=== PATIENT | female | born 1945 | race Caucasian/White ===

== ENCOUNTER 2021-07-15 16:48 | Inpatient (IN) | payer MEDICARE, OTHER, SELFPAY ==
[2021-07-15 16:54] VITALS: BP 171/89; PULSE 77; RESP 16; TEMP 36.8; O2SAT 98; BMI 28.1
[2021-07-15 19:15] VITALS: BP 147/75; PULSE 87
[2021-07-15 19:32] VITALS: BP 156/84; PULSE 78; RESP 16; TEMP 36.7; O2SAT 98
[2021-07-15 19:40] VITALS: O2SAT 99
[2021-07-15 20:21] LABS: Mucous, Urine 0 SEEN /hpf (<or=2+); White Blood Cells 0 SEEN /hpf (0-5)
[2021-07-15 20:47] LABS: Color, Urine Yellow (Yellow); Glucose, Dipstick Normal (Normal); Ketone-Dipstick Negative (Negative); Leukocyte Esterase-Dipstick Negative /ul (Negative); Nitrite-Dipstick Negative (Negative); Occult Blood-Urine Negative /ul (Negative); Protein-Dipstick 15 mg/dl (Negative); Urine Bilirubin Dipstick Negative (Negative); Urine Clarity Clear (Clear); Urine Urobilinogen Normal (Normal)
[2021-07-15] MEDS: Atorvastatin Calcium 20 MG Tablet PO (21:02)
[2021-07-15] MEDS: Acetaminophen 500 MG Tablet 1000 MG PO (21:02)
[2021-07-15] MEDS: Cefadroxil 500 MG CAPSULE PO (21:02)
[2021-07-15 21:43] LABS: Red Blood Cells-Urine 0-5 SEEN /hpf (0-5)
[2021-07-15 21:44] LABS: Bacteria RARE /hpf (None Seen); Squamous Epithelial Cells - UA 0-5 SEEN /hpf (5-10)
[2021-07-15 22:00] VITALS: PULSE 82; RESP 16; O2SAT 98
[2021-07-16] MEDS: traMADol 50 MG Tablet PO (04:53)
--- NOTE | 2021-07-16 05:20 | NURSING ---
04:30 VALLADARES removed and fluid intake encouraged to promote urination. Attends on at this time for possible incontinence.
[2021-07-16 05:59] LABS: Hematocrit 26.3 % (37-47); Hemoglobin 8.3 g/dL (12.0-15.0); Mean Corp Hgb Conc 31.6 g/dL (32-36); Mean Corpuscular Hgb 28.3 pg (27.0-32.0); Mean Corpuscular Volume 89.8 fL (81-99); Mean Platelet Vol. 8.9 fl (6.2-12.0); Platelet Count 213 K/mm3 (150-450); RBC Distribution Width CV 13.5 % (11.6-14.6); RBC Distribution Width SD 43.9 fl (35.1-43.9); Red Blood Count 2.93 M/mm3 (4.2-5.4); White Blood Count 4.6 K/mm3 (4.4-11.0)
[2021-07-16] MEDS: Acetaminophen 500 MG Tablet 1000 MG PO ×3 (06:31→21:09)
[2021-07-16 06:48] LABS: Anion Gap 3 (5-15); BUN 16 mg/dL (7-18); BUN/Creat Ratio 22.2 RATIO (10-20); Calcium,Total 8.3 mg/dL (8.5-10.1); Chloride 109 mmol/L (98-107); Creatinine, Serum 0.72 mg/dL (0.55-1.02); EST Glomerular Filtration Rate 84 mL/min (>60); Est Glom Filt Rate - Afr Amer 101 mL/min (>60); Estimated Creatinine Clearance 40.21 ml/min; Glucose 124 mg/dL (74-106); Potassium 3.4 mmol/L (3.5-5.1); Sodium Level 142 mmol/L (136-145)
[2021-07-16 07:30] VITALS: BP 156/61; PULSE 76; RESP 16; TEMP 36.3; O2SAT 96
[2021-07-16] MEDS: Lisinopril 10 MG Tablet 30 MG PO (07:50)
[2021-07-16] MEDS: Cefadroxil 500 MG CAPSULE PO ×2 (07:51→21:09)
--- NOTE | 2021-07-16 12:47 | HP.PCM_ITS ---
HPI - General General Date of Admission: 07/15/21 HPI Narrative REANNA COSTA, is a 76 YO F with a PMH of HLD, HTN, OA, DDD, lumbar stenosis with radicular pain/paresthesias of the legs/urinary incontinence who was found to have a bone lesion of Lumbar 4 that was suspected to be cancerous. CT scans of the chest/abd and pelvis showed no signs of CA per Reanna. She had a bone bx that was negative for malignancy. She recently had another bx by Dr. Hogan and it too is negative. At the time of the bone bx on 07/08/21 she also underwent a laminectomy of L4-5. On 07/09/21 she went back to surgery to drain a hematoma. She was still incontinent of urine post-op and she is having pe rsistent pain in the R buttock and R thigh and lateral hip area. She has numbness of the Left leg in a stocking type distribution from the distal calf through the foot and she has L foot drop. She has an AFO for the Left foot. Post operatively she was seen by PT and acute rehab was recommended. She lives in a single story house with a basement with her spouse. She has 2 steps with a HR to enter her house. She has been walking with a quad cane. Reanna was transferred to the acute inpt rehab unit at [facility] on 07/15/21 for 3 hours of therapy daily to restore function at or near her level prior to the recent surgery. Reanna had severe pain for 2 years and was on various pain meds and muscle relaxers with no significant relief. Back pain was minimal in comparison to the pain in the legs and the numbness and tingling. She went on to develop urinary incontinence as well and had to use a quad cane to walk. Bending over to make the bed would bring her to tears. All the paperwork from [facility] was reviewed. I discussed the results of the second biopsy with Reanna. She has never had any nerve conduction studies. She has never been on Gabapentin or Lyrica for pain. Oxycodone makes her nauseated and she has been trying not to take pain medication due to this. [facility] Medical History (Updated 07/16/21 @ 13:[address] Lexi Ott DO) Hypertension Home Medications atorvastatin 20 mg PO DAILY 07/15/21 [History Last Taken Unknown] cefadroxil 500 mg PO BID 07/15/21 [History Last Taken Unknown] cholecalciferol (vitamin D3) 10 mcg PO DAILY 07/15/21 [History Last Taken Unknown] diclofenac sodium 75 mg PO DAILY 07/15/21 [History Last Taken Unknown] lisinopril 30 mg PO DAILY 07/15/21 [History Last Taken Unknown] tizanidine 4 mg PO TID PRN PRN 07/15/21 [History Last Taken Unknown] Allergy/AdvReac Type Severity Reaction Status Date / Time Penicillins AdvReac Other Verified 07/15/21 17:10 Sulfa (Sulfonamide AdvReac Other Verified 07/15/21 17:10 Antibiotics) tetracycline AdvReac Other Verified 07/15/21 17:10 Family History (Updated 07/16/21 @ 13:[address] Lexi Ott DO) Mother CVA (cerebral vascular accident) Father , at 81YOA....cause unknown No problems noted. Surgical History (Updated 07/16/21 @ 13:[address] Lexi Ott DO) History of carpal tunnel release of both wrists History of lumbar laminectomy for spinal cord decompression History of Mohs micrographic surgery for skin cancer History of nasal surgery History of tubal ligation Social History (Updated 07/16/21 @ 13:[address] Lexi Ott DO) household members: spouse housing: house Smoking Status: Never smoker ROS Constitutional Constitutional: Reports weakness; Denies anorexia, change in weight, chills, fatigue, fever(s) or night sweats Eyes Eyes: Denies blurry vision, change in vision, eye pain or loss of vision ENT HEENT: Denies abnormal hearing, dysphagia, headache(s), hearing loss, nasal congestion or sore throat Cardiovascular Cardiovascular: Denies chest pain, dyspnea on exertion, edema, lightheadedness, orthopnea, palpitations, paroxysmal nocturnal dyspnea or syncope Respiratory/Chest Respiratory/Chest: Denies cough, dyspnea, shortness of breath at rest, shortness of breath with exertion or wheezing Gastrointestinal Gastrointestinal: Reports nausea and other Details: Nausea with Oxycodone. Tolerates Tramadol if taken with crackers. ; Denies abdominal pain, constipation, diarrhea, dyspepsia, hematemesis, hematochezia or vomiting Genitourinary Genitourinary: Reports urinary incontinence; Denies dysuria, hematuria, nocturia, urinary frequency, urinary hesitancy or urinary urgency Musculoskeletal Musculoskeletal: Reports difficulty walking, extremity pain, numbness, radiating pain into limb, tingling and other Details: R buttock in the sciatic notch ; Denies back pain, joint pain, joint swelling or neck pain Integumentary Integumentary: Reports other Details: Surgical wound low back due to recent Lumbar laminectomy at L4-5. ; Denies jaundice, pruritus or rash Neurologic Neurologic: Reports paresthesias LLE and radicular pain; Denies confusion, disequilibrium, dizziness, focal weakness, headache(s), seizures or tremor(s) Psychiatric Psychiatric: Denies anxiety, depression, homicidal ideation or suicidal ideation Endocrine Endocrinology: Denies change in body appearance, polydipsia or polyuria Hematologic/Lymphatic Hematologic/Lymphatic: Denies easy bleeding, easy bruising or lymphadenopathy Allergic/Immunologic Allergic/Immunologic: Denies rhinitis, eczemia or asthma Vital Signs Vital Signs Vital Signs: 07/15/21 16:54 07/15/21 19:15 07/15/21 19:32 Temperature 98.3 F 98.1 F Temperature Source Oral Oral Pulse Rate 77 87 78 Pulse Strength Respiratory Rate 16 16 Respiratory Effort Respiratory Depth Respiratory Pattern Blood Pressure 171/89 H 147/75 H 156/84 H Blood Pressure Mean 116 99 108 Blood Pressure Source Monitor Monitor Monitor Blood Pressure Position Semi-Fowlers Semi-Fowlers Semi-Fowlers Blood Pressure Location Right Arm Right Arm Right Arm Pulse Ox 98 98 Oxygen Delivery Method Room Air Room Air 07/15/21 19:40 07/15/21 22:00 07/16/21 07:30 Temperature 97.4 F L Temperature Source Temporal Pulse Rate 82 76 Pulse Strength Normal (2+) Respiratory Rate 16 16 Respiratory Effort Normal Non-Labored Respiratory Depth Normal Respiratory Pattern Normal Blood Pressure 156/61 H Blood Pressure Mean 92 Blood Pressure Source Monitor Blood Pressure Position Semi-Fowlers Blood Pressure Location Right Arm Pulse Ox 99 98 96 Oxygen Delivery Method Room Air Room Air Room Air 07/16/21 09:05 Temperature Temperature Source Pulse Rate Pulse Strength Normal (2+) Respiratory Rate Respiratory Effort Respiratory Depth Respiratory Pattern Blood Pressure Blood Pressure Mean Blood Pressure Source Blood Pressure Position Blood Pressure Location Pulse Ox Oxygen Delivery Method Weight Weight: 159 lb 6.307 oz Body Mass Index (BMI) 28.1 Physical Exam Const alert, oriented x3 and no apparent distress Constitutional Narrative: Making good eye contact, appropriate. Lying in bed and appears to be in no distress. General Appearance: cooperative, comfortable, well kempt and well developed HEENT moist oral mucous membranes and oropharynx normal Head and Scalp: normocephalic and atraumatic Eyes PERRL, EOMs intact bilaterally, conjunctivae normal and no scleral icterus General Eye: normal appearance of both eyes Neck no lymphadenopathy, supple, no JVD and no carotid bruits Neck Narrative: Brisk carotid upstroke with good pulse volume bilaterally Lymph Lymphatic: no lymphadenopathy noted Resp normal respiratory effort, normal air movement, no use of accessory muscles and clear to auscultation bilaterally Resp Narrative: Not tachypneic and no conversational dyspnea. Effort and Inspection: able to speak in complete sentences Cardio regular rate, regular rhythm, S1 normal heart sound, S2 normal heart sound, no murmurs, no rub and no gallops GI normal to inspection, nondistended, normoactive bowel sounds, soft to palpation, non-tender, no masses and no bruits GI Narrative: No guarding with palpation. no CVA tenderness Bladder / Kidney Exam: bladder normal to palpation Extremity no clubbing, cyanosis or edema, no calf tenderness and no pedal edema Extremity Narrative: Has foot drop on the left and there is an AFO in place Peripheral Pulses: Yes pulses 2+ throughout Skin Skin Narrative: No rashes, no skin breakdown. She has an incision in the lumbar area from recent laminectomy. General Skin Exam: no breakdown Rashes: no rashes Neuro oriented x3 and CN's II-XII intact bilaterally Neuro Narrative: Decreased sensation in the distal LLE from mid calf down in a stocking distribution Motor Exam: strength 5/5 throughout Psych mental status grossly normal, thought process normal, cooperative, affect normal and speech normal Psych Narrative: Appropriate, making good eye contact. Able to stay on topic and focus. No flight of ideas. Does not appear anxious or depressed. Conversant and relating well to staff. Appearance: grossly normal Attitude: calm Activity / Motor Behavior: appropriate eye contact Results Lab / Micro Data Result Diagrams: 07/16/21 05:35 07/16/21 05:35 Labs: Laboratory Results - last 24 hr 07/15/21 19:10: Urine Color Yellow, Urine Clarity Clear, Urine pH 6.0, Ur Specific Clayton 1.020, Urine Protein 15 H, Urine Glucose (UA) Normal, Urine Ketones Negative, Urine Occult Blood Negative, Urine Nitrite Negative, Urine Bilirubin Negative, Urine Urobilinogen Normal, Ur Leukocyte Esterase Negative, Urine RBC 0-5 SEEN, Urine WBC 0 SEEN, Ur Squamous Epith Cells 0-5 SEEN, Urine Bacteria RARE, Urine Mucus 0 SEEN 07/16/21 05:35: WBC 4.6, RBC 2.93 L, Hgb 8.3 L, Hct 26.3 L, MCV 89.8, MCH 28.3, MCHC 31.6 L, RDW Std Deviation 43.9, RDW Coeff of Jurgen 13.5, Plt Count 213, MPV 8.9 07/16/21 05:35: Sodium 142, Potassium 3.4 L, Chloride 109 H, Carbon Dioxide 30.0, Anion Gap 3 L, BUN 16, Creatinine 0.72, Estim Creat Clear Calc 40.21, Est GFR (MDRD) Af Amer 101, Est GFR (MDRD) Non-Af 84, BUN/Creatinine Ratio 22.2 H, Glucose 124 H, Calcium 8.3 L Assessment & Plan Assessment/Plan (1) Physical debility: (2) Bone lesion: (3) Lumbar canal stenosis: (4) History of lumbar laminectomy for spinal cord decompression: (5) Urinary incontinence: (6) Paresthesias: (7) Radicular pain of lower extremity: (8) Left foot drop: (9) Hypokalemia: (10) Elevated fasting glucose: (11) Normochromic normocytic anemia: (12) Degenerative disc disease, lumbar: (13) HLD (hyperlipidemia): (14) Hypertension: PLAN: PLAN PT for gait stability OT for ADL's Analgesics as needed Bowel protocol Fall precautions Assess for Anxiety/Depression GI prophylaxis - not necessary. No epigastric pain and no hx of PUD or reflux. she has some nausea but this is associated with Oxycodone DVT prophylaxis with TEDS and SCD's Follow up with Dr. De La Vega and her PCP following DC from IP Rehab AM lab personally reviewed. Will add a liver panel, Mag and phos. The numbness in the Left leg is in a stocking distribution, not dermatomal? due to sciatic nerve compression? Sx consistent with a polyneuropathy? May need to see a neurologist and have EMG/ENG following discharge from rehab if the sx persist or worsen. Pain medication changed to Tramadol. Schedule the Tylenol. Add Gabapentin low dose. No NSAID's at this time Supplement potassium and recheck in a few days. Unit Exclusion This patient is an acute care inpatient being housed in the excluded unit because of capacity issues related to the disaster or emergency.: Yes Charges/Coding Visit Charges Inpatient E&M: 49018 Init Hosp L2
[2021-07-16] MEDS: Potassium Chloride Oral Tablet 20 MEQ PO (13:51)
[2021-07-16 13:55] LABS: AST(SGOT) 19 U/L (15-37); Alanine Aminotransfer ALT/SGPT 21 U/L (13-56); Albumin, Serum 2.8 g/dL (3.2-5.0); Alkaline Phosphatase 61 U/L (45-117); Bilirubin, Direct 0.07 mg/dL (0.00-0.30); Globulin 2.7 g/dL (2.2-4.2); Phosphorus 3.7 mg/dL (2.5-4.9); Protein, Total 5.5 g/dL (6.4-8.2)
--- NOTE | 2021-07-16 14:26 | PCM.RU.PYE ---
Admission Information Primary Diagnosis:: Debility secondary to recent surgery for lumbar canal stenosis with paresthesias in the left lower extremity, urinary retention and incontinence and radicular pain in the right buttock, right lateral thigh and hip area. Status Changes from Prescreening?: No changes Identified Actual Problem List:: Infection, UTI, Skin Intergrity, Pain, ALteration in Cmfrt, Bladder Incontinence, Bowel, Constipation, Mobility Impaired and Alteration-Leisure Activ. Potential Problem List:: DVT, Bleeding, Infection, UTI, Aspiration, Falls, Skin Integrity and Depression Risk of Complications DVT: FRACISCO Hose and Sequential Compression Device Bleeding: Monitor Lab Values, Nursing to Teach Precautions for anti-coagulation therapy., Wound, if applicable, to be assessed every shift. and Stroke patients assessed for lethargy or change in status. Infection: Clinical Staff to Monitor for S/S of infection: and S/S of infection include fever, redness, warmth, etc. Urinary Tract Infection: Monitor for frequency, burning, discomfort, or incontinence. and Nursing will obtain urine sample for urinalysis and C&S when ordered. Aspiration: Clinical staff will monitor for coughing, drooling, congestion., Speech will evaluate swallowing and dsyphasia. and Nursing will monitor patient swallowing during meals. Falls: Patient will be evaluated for Fall Precautions and Patient will be placed on Fall Precautions as indicated per protocol. Skin Breakdown: Nursing will assess skin daily using assessment tool. and Nursing will place on Skin Breakdown Precautions as indicated. Pain: Clinical staff will assess patient's pain level per protocol., Medications will be given, if needed, and the pain level reassessed. and Other methods: Massage, distraction, decrease stimulus, etc. used PRN. Plan of Care Patient requires physician specializing in physical medicine and rehab oversight to provide close medical supervision of rehab issues including: Pain Management, Sleep Problems, Bowel and Bladder, Medical and co-morbidity Management, DVT prophylaxis, Rehabilitation Leadership and Coordination of treatment team Patient needs Physical Therapy: For a minimum of 1 hour and At least 5 out of 7 days Patient needs Physical Therapy to improve:: Mobility, Strengthening, Transfers, Stretching, ROM, Endurance, Stairs, Gait and Balance Patient needs Occupational Therapy: For a minimum of 1 hour and At least 5 out of 7 days Patient needs Occupational Therapy to improve ADL's incl.: Eating, Grooming, Bathing, Dressing, Toileting, Toilet transfers, Community Reintegration, Higher functioning activities, Household tasks, Adaptive Equipment, Splinting and Other activities as determined Patient requires 24/7 Rehabilitation Nursing for: Pain Issues, Identifying and preventing risk factors, Monitoring and reporting current medical conditions, Assisting with ambulation, transfer, and all ADL's, Teaching patients about disease process and medications, Family teaching, Providing safe environment, Bowel and Bladder Issues, Skin integrity and Medication Management Patient needs Offset Platemaker/ Case Management for: Discharge Planning, Arranging Home Equipment or Services and Family Interventions Patient needs Dietary and Nutrition Services for: Adequate Nutrition, Nutritional Supplements and Nutritional Education Goals Patient will remain: free from falls and or injury at time of discharge. Patient will perform bed mobility at: MOD I level of assist. Patient will complete transfers from bed to chair at: MOD I level of assist. Patient will ambulate: 100 feet, with LRD and - (250ft) Patient will complete upper body dressing at: MOD I level of assist. Patient will complete lower body dressing at: - (With AE) Patient will complete toileting at: MOD I level of assist. Patient will perform bathing at: - (supervision) Patient will complete grooming at: MOD I level of assist. Patient will complete home management skills at: MOD I level of assist. Patient will achieve: - (1 curb step and 2 regular steps to gain entry to her home) Patient will have pain level of: of 3 or less Patient's skin will: remain intact Patient will receive: adequate nutrition. Discharge Planning Pt Prognosis for Sig. Practical Improv. w/in Reasonable Time: Good Estimated Length of stay (days): 10 Anticipated D/C Destination: Home w/ family or friends Was Preadmission Assessment Accurate?: Yes
--- NOTE | 2021-07-16 15:07 | CHAPLAIN ---
Type of Pastoral Visit _x__ Initial Visit ___ Follow-up Visit ___ On-call Visit ___ General Patient Visit ___ Spiritual Assessment ___ Family Conference ___ Bereavement ___ Rapid Response ___ Code Blue ___ Other (describe below) Pastoral Care Referral From _x__ Patient ___ Family ___ Nurse ___ Physician ___ Analog Circuit Designer ___ Bevel Polisher ___ Other (describe below) Sacrament/Intervention _x__ Active listening ___ Anointing ___ Jehovah'S Witness ___ Bereavement ___ Communion _x__ Carole exploration ___ ___ Life review _x__ Prayer ___ Reconciliation ___ Sacrament of Sick _x__ Supportive presence ___ Wedding ___ Other (describe below) Pastoral Comments patient very welcoming of spiritual care support and invites this injector assembler to sit and visit; pt explains her health concern, the process of medical intervention to this point, and the good news of no cancer in the biopsy report; pt credits answers to many prayers and carole in God; pt has family support but admits that spouse is trying to do his best; pt is talkative and welcomes prayer and future visits
--- NOTE | 2021-07-16 15:17 | CASEMGMT ---
Social Work Met with patient to complete initial assessment. Introduced self and role. Completed part of assessment then pt went to therapy. SW to f/u to complete. Cyrstal Poole, SALES TECHNICIAN HOME THEATER LIVESTOCK JUDGING COACH
[2021-07-16] MEDS: Gabapentin 100 MG Capsule PO (16:36)
[2021-07-16 19:15] VITALS: BP 150/71; PULSE 70; RESP 16; TEMP 36.4; O2SAT 99
[2021-07-16] MEDS: Gabapentin 100 MG Capsule 200 MG PO (21:09)
[2021-07-16] MEDS: Atorvastatin Calcium 20 MG Tablet PO (21:09)
--- NOTE | 2021-07-16 21:10 | RAD_ITS ---
STUDY: X-RAY - ABDOMEN/PELVIS REASON FOR EXAM: Female, 76 years old. constipation TECHNIQUE: Single AP view of the abdomen / pelvis. COMPARISON: None. FINDINGS: Normal visualized lung bases. Evaluation for free air is limited on supine radiographs. Midline surgical staple line. Moderate increased stool predominantly in the proximal colon and rectosigmoid colon. Nonobstructive bowel gas pattern. No acute osseous abnormality. RAD/Abdomen Single View (Portable) IMPRESSION: Moderate increased stool, correlate for constipation. Electronically Signed: Sohan Yu MD at 22:02 EDT ,
--- NOTE | 2021-07-16 21:12 | NURSING ---
Straight cath per orders for Q6hr if no void. PVR =63
--- NOTE | 2021-07-16 21:13 | NURSING ---
straight cathed per orders from Dr Neal for Q6H straight cath if no void. PVR =635mL, straight cathed 600mL and BS=30mL remains. KUB ordered per order and imaging is present in room at this time.
[2021-07-16 22:00] VITALS: PULSE 69; RESP 16; O2SAT 98
[2021-07-17] MEDS: Acetaminophen 500 MG Tablet 1000 MG PO ×3 (05:47→20:42)
[2021-07-17 08:00] VITALS: BP 138/69; PULSE 75; RESP 16; TEMP 36.2; O2SAT 96
[2021-07-17] MEDS: Cefadroxil 500 MG CAPSULE PO ×2 (08:16→20:44)
[2021-07-17] MEDS: Gabapentin 100 MG Capsule PO ×2 (08:16→17:09)
[2021-07-17] MEDS: Potassium Chloride Oral Tablet 20 MEQ PO (08:16)
[2021-07-17] MEDS: Lisinopril 10 MG Tablet 30 MG PO (08:16)
[2021-07-17] MEDS: Senna/Docusate Sodium 1 Tablet 2 TABLET PO ×2 (08:18→20:42)
--- NOTE | 2021-07-17 11:29 | PCM.PN.BLA ---
Progress Note Afebrile VSS - Systolic is mildly elevated. Diastolic is more often than not WNL......increase may be due to pain. Maintaining appropriate oxygen saturation on RA Oral intake is adequate Discussed with nursing - Will get a Laxative today for constipation. Has been retaining urine and has been straight cath'd. A KUB was obtained last night and there is a large amount of stool in the R colon and in the rectosigmoid area. NS bowel gas pattern. Reviewed the PT/OT notes Medication list reviewed. Has only taken 1 dose of Tramadol since admission and no Zanaflex. Liver panel was unremarkable yesterday. Tells me that the Gabapentin helped a lot with leg pain. She slept better last night than she has in quite some time. Denies CP, SOB, N/V/abd pain, lightheadedness, ROSE and cough. She is having some spasms in the R hamstring. Numbness in the distal LLE persists. No calf pain. Physical Exam Const alert, oriented x3 and no apparent distress Constitutional Narrative: Lying in bed waiting for lunch. General Appearance: cooperative, comfortable and well kempt Resp normal respiratory effort, normal air movement and clear to auscultation bilaterally Effort and Inspection: able to speak in complete sentences Cardio regular rate, regular rhythm and no gallops GI normal to inspection, nondistended, normoactive bowel sounds, soft to palpation and non-tender GI Narrative: Bladder is not distended. No guarding with palpation Extremity no calf tenderness and no pedal edema Extremity Narrative: The numbness in the LLE is lateral calf and dorsum of the foot. The medial leg and arch are spared. Skin General Skin Exam: no breakdown Rashes: no rashes Assessment & Plan Assessment/Plan (1) Physical debility: (2) Lumbar canal stenosis: QUALIFIERS: Neurogenic claudication status: with neurogenic claudication Qualified Code(s): M48.062 - Spinal stenosis, lumbar region with neurogenic claudication (3) History of lumbar laminectomy for spinal cord decompression: (4) Normochromic normocytic anemia: (5) Urinary incontinence: QUALIFIERS: Urinary Incontinence type: overflow incontinence Qualified Code(s): N39.490 - Overflow incontinence (6) Urine retention: (7) Constipation: QUALIFIERS: Constipation type: unspecified constipation type Qualified Code(s): K59.00 - Constipation, unspecified (8) Radicular pain of lower extremity: (9) Paresthesias: (10) Left foot drop: (11) Hypertension: QUALIFIERS: Hypertension type: primary hypertension Qualified Code(s): I10 - Essential (primary) hypertension PLAN: 1. Continue the Gabapentin at the current dose......if in a couple days she is still having significant pain will increase the dose. 2. Continue PT/OT. She is very motivated and is working hard to get home. 3. Laxative today. Suspect the urine retention may be due to constipation with large stool burden in the rectosigmoid colon. 4. I suspect the paresthesias in the distal LLE are due to Peroneal nerve compression - possibly due to positioning during surgery. 5. Has not had a BMD test in many years. she takes a vitamin D supplement daily. I recommend she ask her PCP for a BMD test after DC. Visit Charges Inpatient E&M: 11211 Subs Hosp L2
[2021-07-17] MEDS: Bisacodyl 5 MG Tablet 10 MG PO (14:44)
[2021-07-17 19:30] VITALS: BP 142/62; PULSE 90; RESP 16; TEMP 36.4; O2SAT 96
[2021-07-17] MEDS: Gabapentin 100 MG Capsule 200 MG PO (20:43)
[2021-07-17] MEDS: Atorvastatin Calcium 20 MG Tablet PO (20:44)
[2021-07-17 21:31] VITALS: PULSE 69; RESP 16; O2SAT 98
[2021-07-18] MEDS: Acetaminophen 500 MG Tablet 1000 MG PO ×3 (06:04→20:54)
[2021-07-18] MEDS: Potassium Chloride Oral Tablet 20 MEQ PO (07:35)
[2021-07-18] MEDS: Cefadroxil 500 MG CAPSULE PO ×2 (07:35→20:55)
[2021-07-18] MEDS: Lisinopril 10 MG Tablet 30 MG PO (07:35)
[2021-07-18] MEDS: Senna/Docusate Sodium 1 Tablet 2 TABLET PO (07:36)
[2021-07-18] MEDS: Gabapentin 100 MG Capsule PO ×2 (07:38→17:13)
[2021-07-18 08:00] VITALS: BP 139/68; PULSE 93; RESP 18; TEMP 36; O2SAT 93
[2021-07-18] MEDS: Bisacodyl 10 MG Suppository RC (14:03)
[2021-07-18 19:31] VITALS: BP 155/71; PULSE 83; RESP 16; TEMP 37; O2SAT 97
[2021-07-18] MEDS: Atorvastatin Calcium 20 MG Tablet PO (20:55)
[2021-07-18] MEDS: Gabapentin 100 MG Capsule 200 MG PO (20:56)
--- NOTE | 2021-07-18 21:00 | NURSING ---
STRAIGHT CATHED FOR 450 ML CLEAR YELLOW URINE. PT TOLERATES PROCEDURE WELL.
--- NOTE | 2021-07-19 02:45 | NURSING ---
STRAIGHT CATHED PER STERILE PROCEDURE FOR 450 ML OF CLEAR YELLOW URINE. PT TOLERATES PROCEDURE WELL.
[2021-07-19] MEDS: traMADol 50 MG Tablet PO (06:38)
[2021-07-19] MEDS: Acetaminophen 500 MG Tablet 1000 MG PO ×3 (06:39→21:30)
[2021-07-19 08:00] VITALS: BP 135/58; PULSE 86; RESP 16; TEMP 36.8; O2SAT 95
[2021-07-19] MEDS: Gabapentin 100 MG Capsule PO (08:15)
[2021-07-19] MEDS: Cefadroxil 500 MG CAPSULE PO ×2 (08:15→21:31)
[2021-07-19] MEDS: Lisinopril 10 MG Tablet 30 MG PO (08:16)
[2021-07-19] MEDS: Senna/Docusate Sodium 1 Tablet 2 TABLET PO ×2 (08:16→21:31)
--- NOTE | 2021-07-19 16:07 | PCM.PROGNOTE ---
Subjective Subjective Afebrile VSS-systolic blood pressure is still occasionally mildly elevated but overall has come down since admission. Maintaining appropriate oxygen saturation on RA Oral intake is good Discussed with nursing - no problems that need addressed Reviewed the PT/OT notes Medication list reviewed. Still having pain in the R buttock and the R lateral hip area and lateral thigh. The Gabapentin helps. She is sleeping well at night. Having regular BM's. Still unable to urinate and is being straight cath'd. Had a little coughing last night after taking a handful of pills but, she drank a little water and then went back to sleep. She denies CP, SOB, palpitations, lightheadedness, dysuria, suprapubic pain, ROSE, ST, loss of taste/smell. Objective Data Objective Data Vital Signs: Vital Signs Temp Pulse Resp BP Pulse Ox 98.3 F 86 16 135/58 H 95 07/19/21 08:00 07/19/21 08:00 07/19/21 08:00 07/19/21 08:00 07/19/21 08:00 Oxygen Delivery Method Room Air Weight: 159 lb 6.307 oz Body Mass Index (BMI) 28.1 Intake & Output: Intake and Output for Last 24 Hours 07/17/21 07/18/21 07/19/21 23:59 23:59 23:59 Intake Total 1920 / 1920 1959 / 1959 1170 / 1170 Output Total 2105 / 2105 1350 / 1350 1250 / 1250 Balance -185 / -185 610 / 610 -80 / -80 Lab / Micro Data Result Diagrams: 07/16/21 05:35 07/16/21 05:35 Physical Exam Const alert, oriented x3 and no apparent distress General Appearance: cooperative and comfortable HEENT moist oral mucous membranes Resp normal respiratory effort, no use of accessory muscles and clear to auscultation bilaterally Resp Narrative: Not tachypneic and no conversational dyspnea. Cardio regular rate, regular rhythm, S1 normal heart sound, S2 normal heart sound, no murmurs, no rub and no gallops GI normal to inspection, nondistended, normoactive bowel sounds and non-tender GI Narrative: No guarding with palpation. Extremity Extremity Narrative: Negative Shlomo's and Jie's signs Skin Skin Narrative: No rashes, no skin breakdown. Neuro oriented x3 and CN's II-XII intact bilaterally Neuro Narrative: She has some weak dorsiflexion of the Left foot. Wears an AFO on the LLE for foot drop. Psych affect normal Psych Narrative: Appropriate, making good eye contact. Able to stay on topic and focus. No flight of ideas. Does not appear anxious or depressed. Conversant and relating well to staff. sleeping well. Assessment & Plan Assessment/Plan (1) Physical debility: (2) History of lumbar laminectomy for spinal cord decompression: (3) Urine retention: (4) Normochromic normocytic anemia: (5) Radicular pain of lower extremity: (6) Left foot drop: (7) Hypertension: QUALIFIERS: Hypertension type: primary hypertension Qualified Code(s): I10 - Essential (primary) hypertension PLAN: 1. Continue PT/OT - she is making good progress and is very motivated to do well so she can go home. 2. Increase the Gabapentin to 200 mg TID. 3. Systolic BP is mildly elevated but, better than at admission. Will continue to monitor.....no need to add additional medication at this time. Charges/Coding Visit Charges Inpatient E&M: 88833 Subs Hosp L2
[2021-07-19] MEDS: Gabapentin 100 MG Capsule 200 MG PO ×2 (17:21→21:31)
[2021-07-19 19:24] VITALS: BP 158/75; PULSE 87; RESP 17; TEMP 37; O2SAT 95
[2021-07-19] MEDS: Atorvastatin Calcium 20 MG Tablet PO (21:31)
--- NOTE | 2021-07-20 01:30 | NURSING ---
PT STRAIGHT CATHED PER STERILE TECHNIQUE AND 725 ML CLEAR LIGHT YELLOW URINE DRAINED. PT TOLERATES PROCEDURE WELL.
[2021-07-20] MEDS: traMADol 50 MG Tablet PO ×2 (01:53→19:38)
[2021-07-20] MEDS: Acetaminophen 500 MG Tablet 1000 MG PO ×3 (06:26→20:52)
[2021-07-20 07:45] VITALS: BP 150/75; PULSE 73; RESP 16; TEMP 36.7; O2SAT 93
[2021-07-20] MEDS: Lisinopril 10 MG Tablet 30 MG PO (07:46)
[2021-07-20] MEDS: Gabapentin 100 MG Capsule 200 MG PO ×3 (07:46→20:53)
[2021-07-20] MEDS: Senna/Docusate Sodium 1 Tablet 2 TABLET PO ×2 (07:46→20:54)
[2021-07-20] MEDS: Cefadroxil 500 MG CAPSULE PO ×2 (07:48→20:55)
[2021-07-20 19:43] VITALS: BP 144/71; PULSE 73; RESP 14; TEMP 36.9; O2SAT 95
[2021-07-20] MEDS: Atorvastatin Calcium 20 MG Tablet PO (20:57)
[2021-07-21] MEDS: Acetaminophen 500 MG Tablet 1000 MG PO ×3 (05:11→21:55)
[2021-07-21 05:57] LABS: Hematocrit 27.6 % (37-47); Hemoglobin 8.8 g/dL (12.0-15.0)
[2021-07-21 06:27] LABS: Anion Gap 6 (5-15); BUN 14 mg/dL (7-18); BUN/Creat Ratio 21.6 RATIO (10-20); Calcium,Total 8.6 mg/dL (8.5-10.1); Chloride 107 mmol/L (98-107); Creatinine, Serum 0.65 mg/dL (0.55-1.02); EST Glomerular Filtration Rate 95 mL/min (>60); Est Glom Filt Rate - Afr Amer 115 mL/min (>60); Estimated Creatinine Clearance 40.21 ml/min; Glucose 94 mg/dL (74-106); Potassium 4.1 mmol/L (3.5-5.1); Sodium Level 140 mmol/L (136-145)
[2021-07-21] MEDS: traMADol 50 MG Tablet PO ×2 (07:03→21:54)
[2021-07-21] MEDS: Cefadroxil 500 MG CAPSULE PO ×2 (07:40→21:49)
[2021-07-21] MEDS: Senna/Docusate Sodium 1 Tablet 2 TABLET PO (07:40)
[2021-07-21] MEDS: Gabapentin 100 MG Capsule 200 MG PO ×3 (07:41→21:33)
[2021-07-21] MEDS: Lisinopril 10 MG Tablet 30 MG PO (07:41)
[2021-07-21 08:00] VITALS: BP 131/74; PULSE 72; RESP 14; TEMP 37; O2SAT 95
--- NOTE | 2021-07-21 11:20 | PN_ITS ---
Progress Note Day #7 of Cefadroxil Reanna was seen on TEAM rounds today. Her Tito was present in the room. Afebrile VSS - systolic BP is still over goal frequently. Diastolic is good. HR is WNL Maintaining appropriate oxygen saturation on RA Oral intake is good Discussed with nursing - no problems that need addressed. Reviewed the PT/OT notes Medication list reviewed. All lab was personally reviewed. Hemoglobin is 8.8 today, up from 8.3 on 07/16/2021. Potassium is normal at 4.1 following supplementation. Creatinine is stable at 0.65. Reanna tells me that the pain in the R hip/lateral thigh and the R anterior thigh is gone. She still has some pain in the R buttock but, it comes and goes now. She is sleeping well. She denies CP, SOB, calf pain, dysuria, urinary frequency, N/V/Abd pain, flank pain, Constipation. Still not able to urinate and she is getting catheterized every 6H. Physical Exam Const alert, oriented x3 and no apparent distress General Appearance: cooperative, comfortable and well kempt HEENT HEENT Narrative: MM are a little dry Resp normal respiratory effort, normal air movement and clear to auscultation bilaterally Effort and Inspection: able to speak in complete sentences Cardio regular rate, regular rhythm and no gallops GI normal to inspection, nondistended, normoactive bowel sounds, soft to palpation and non-tender GI Narrative: Bladder is not distended. REctal: she has ext hemorrhoids and they are not thrombosed. Stool is soft and brown. No impaction, fair rectal tone. Extremity normal capillary refill, no calf tenderness and no pedal edema Skin Skin Narrative: The incision is intact. [place] are in place. No erythema or increased warmth to touch. Small amount of dry serous drainage at the caudal end of the incision. No DC could be expressed today. General Skin Exam: no breakdown Rashes: no rashes Assessment & Plan Assessment/Plan (1) Physical debility: (2) Lumbar canal stenosis: QUALIFIERS: Neurogenic claudication status: with neurogenic claudication Qualified Code(s): M48.062 - Spinal stenosis, lumbar region with neurogenic claudication (3) History of lumbar laminectomy for spinal cord decompression: (4) Normochromic normocytic anemia: (5) Left foot drop: (6) Urine retention: (7) Radicular pain of lower extremity: (8) Paresthesias: (9) Hypertension: QUALIFIERS: Hypertension type: primary hypertension Qualified Code(s): I10 - Essential (primary) hypertension PLAN: 1. Continue PT/OT. SCD's/TEDS for DVT prophylaxis 2. Consult Dr. Lu if the inability to even initiate urination continues past Wednesday.........may need to learn how to straight cath prior to going home if the problem persists 3. Continue the current dose of Gabapentin. 4. Increase Lisinopril to 40 mg daily and continue to monitor BP Visit Charges Inpatient E&M: 98827 Subs Hosp L2
--- NOTE | 2021-07-21 12:40 | CASEMGMT ---
Social Work Team meeting held with patient and patient spouse in room. Patient approved 15 Medicare days with anticipated discharge on or before 07/30/2021. Patient plans to discharge to home with spouse. Patient to continue with further care and treatment on the Rehab Unit. Social Work to continue to follow. Dimitrios BEATTY, MAGDA
[2021-07-21] MEDS: Lisinopril 10 MG Tablet PO (13:51)
--- NOTE | 2021-07-21 18:55 | NURSING ---
Earlier today patient was successful in straight catherizing herself but she was unsuccessful this evening. Staff will continue to work with her on this and also patient asked her to bring her in a mirror and staff can see if she can sit, have the mirror present, and visualize to have success instead of standing.
[2021-07-21 19:48] VITALS: BP 145/81; PULSE 74; RESP 16; TEMP 36.4; O2SAT 96
[2021-07-21] MEDS: Atorvastatin Calcium 20 MG Tablet PO (21:50)
[2021-07-21 22:00] VITALS: PULSE 82; RESP 16; O2SAT 98
[2021-07-22] MEDS: Acetaminophen 500 MG Tablet 1000 MG PO ×3 (05:55→21:11)
[2021-07-22] MEDS: Gabapentin 100 MG Capsule 200 MG PO ×3 (07:44→21:12)
[2021-07-22] MEDS: Cefadroxil 500 MG CAPSULE PO ×2 (07:45→21:12)
[2021-07-22] MEDS: Senna/Docusate Sodium 1 Tablet 2 TABLET PO ×2 (07:45→21:11)
[2021-07-22] MEDS: Lisinopril 40 MG Tablet PO (07:45)
[2021-07-22 08:30] VITALS: BP 122/74; PULSE 70; RESP 17; TEMP 36.2; O2SAT 97
--- NOTE | 2021-07-22 18:57 | NURSING ---
Unsuccessful in straight catherizing herself in a seated position, mirror present and propped. Will continue to attempt procedure.
[2021-07-22] MEDS: traMADol 50 MG Tablet PO (21:12)
[2021-07-22] MEDS: Atorvastatin Calcium 20 MG Tablet PO (21:12)
[2021-07-22 21:43] VITALS: BP 145/71; PULSE 90; RESP 17; TEMP 36.4; O2SAT 96
[2021-07-22 22:00] VITALS: PULSE 88; RESP 16; O2SAT 96
[2021-07-23] MEDS: Acetaminophen 500 MG Tablet 1000 MG PO ×3 (06:32→19:59)
[2021-07-23 08:09] VITALS: BP 153/58; PULSE 78; RESP 16; TEMP 36.1; O2SAT 98
[2021-07-23] MEDS: Lisinopril 40 MG Tablet PO (08:27)
[2021-07-23] MEDS: Gabapentin 100 MG Capsule 200 MG PO ×3 (08:27→20:06)
[2021-07-23] MEDS: Cefadroxil 500 MG CAPSULE PO ×2 (08:27→20:06)
[2021-07-23] MEDS: traMADol 50 MG Tablet PO ×2 (08:27→20:07)
[2021-07-23] MEDS: Senna/Docusate Sodium 1 Tablet 2 TABLET PO ×2 (08:28→19:59)
--- NOTE | 2021-07-23 15:29 | CHAPLAIN ---
Type of Pastoral Visit ___ Initial Visit _x__ Follow-up Visit ___ On-call Visit ___ General Patient Visit ___ Spiritual Assessment ___ Family Conference ___ Bereavement ___ Rapid Response ___ Code Blue ___ Other (describe below) Pastoral Care Referral From _x__ Patient ___ Family ___ Nurse ___ Physician ___ Knock Up Assembler ___ Aviation Engineer ___ Other (describe below) Sacrament/Intervention _x__ Active listening ___ Anointing ___ Scientology ___ Bereavement ___ Communion ___ Carole exploration ___ ___ Life review _x__ Prayer ___ Reconciliation ___ Sacrament of Sick ___ Supportive presence ___ Wedding ___ Other (describe below) Pastoral Comments brief stop in to check up on patient; pt is sitting up in bed and states she is doing fine; pt says there is some progress; pt shows pictures of a special little grandchild that was born at 1 lb+ and is doing well; pt expresses gratitude for miracle and blessings
--- NOTE | 2021-07-23 18:56 | NURSING ---
St Cath this afternoon was done late d/t lunch arriving late and pt being with therapy. Pt requested to wait until later this evening to do st cath
[2021-07-23] MEDS: Atorvastatin Calcium 20 MG Tablet PO (20:00)
[2021-07-23 20:09] VITALS: BP 123/72; PULSE 77; RESP 16; TEMP 36.8; O2SAT 95
[2021-07-23 20:30] VITALS: RESP 16
[2021-07-24] MEDS: Acetaminophen 500 MG Tablet 1000 MG PO ×3 (05:10→22:01)
[2021-07-24 08:26] VITALS: BP 148/79; PULSE 110; RESP 16; TEMP 36.6; O2SAT 95
[2021-07-24] MEDS: Cefadroxil 500 MG CAPSULE PO (09:25)
[2021-07-24] MEDS: Lisinopril 40 MG Tablet PO (09:25)
[2021-07-24] MEDS: Gabapentin 100 MG Capsule 200 MG PO ×3 (09:25→22:04)
[2021-07-24] MEDS: traMADol 50 MG Tablet PO (09:25)
[2021-07-24] MEDS: Senna/Docusate Sodium 1 Tablet 2 TABLET PO (09:26)
--- NOTE | 2021-07-24 14:08 | CASEMGMT ---
Social Work Completed living will and HCPOA. Pt named as primary. Original and copy provided to pt. Copies placed on chart. Crystal Poole, MANIFOLD OPERATOR LOADER UNLOADER
--- NOTE | 2021-07-24 16:47 | PCM.PROGNOTE ---
Subjective Subjective Afebrile VSS - systolic BP is still mostly above goal. Diastolic is within goal. Maintaining appropriate oxygen saturation on RA Oral intake is good Weight is stable Having regular bowel movements and her last bowel movement was today. Discussed with nursing - no problems that need addressed. She is doing straight cath herself with some cuing on technique from the nurses. She fel like her Attends were damp this AM and thinks she may have passed a little urine on her own. Reviewed the PT/OT notes Medication list reviewed. She is taking the Tramadol 1-2 times a day. Tells me that her pain is well controlled. Reanna denies chest pain, shortness of breath, palpitations, lightheadedness, cephalgia, nausea/vomiting/abdominal pain, dysuria, calf pain. She is sleeping and eating well. She really has no complaints today. Objective Data Objective Data Vital Signs: Vital Signs Temp Pulse Resp BP Pulse Ox 97.9 F 110 H 16 148/79 H 95 07/24/21 08:26 07/24/21 08:26 07/24/21 08:26 07/24/21 08:26 07/24/21 08:26 Oxygen Delivery Method Room Air Weight: 159 lb 2.78 oz Body Mass Index (BMI) 28.1 Intake & Output: Intake and Output for Last 24 Hours 07/22/21 07/23/21 07/24/21 23:59 23:59 23:59 Intake Total 1994 1710 / 1710 1220 / 1220 Output Total 1994 1250 / 2250 2200 / 2200 Balance 0 / 120 460 / -540 -980 / -980 Lab / Micro Data Result Diagrams: 07/21/21 05:09 07/21/21 05:09 Physical Exam Const alert, oriented x3, no apparent distress and well nourished Constitutional Narrative: pleasant General Appearance: cooperative HEENT moist oral mucous membranes Resp normal respiratory effort, normal air movement and clear to auscultation bilaterally Cardio regular rate, regular rhythm and no gallops GI normal to inspection, nondistended, normoactive bowel sounds, soft to palpation and non-tender Extremity normal capillary refill and no calf tenderness Skin General Skin Exam: no breakdown Rashes: no rashes Wound Narrative: Incision is healing well and there is no erythema, purulent DC or significant increase in warmth to touch. Assessment & Plan Assessment/Plan (1) Physical debility: (2) Lumbar canal stenosis: QUALIFIERS: Neurogenic claudication status: with neurogenic claudication Qualified Code(s): M48.062 - Spinal stenosis, lumbar region with neurogenic claudication (3) Radicular pain of lower extremity: (4) History of lumbar laminectomy for spinal cord decompression: (5) Urine retention: (6) Left foot drop: PLAN: Foot drop was new following the surgery. (7) Normochromic normocytic anemia: (8) Hypertension: QUALIFIERS: Hypertension type: primary hypertension Qualified Code(s): I10 - Essential (primary) hypertension PLAN: No significant change in the systolic BP with increase in the Lisinopril dose. PLAN: Plan 1. Continue teaching on how to self cath. 2. Continue PT/OT 3. Decrease the Lisinopril back to 30 mg and Add Cardizem 4. Plan on DC home on the . 5. If she is still retaining urine at DC will have her follow up with Dr. Lu post DC. 6. Recheck an HH and a BMP on Wednesday Charges/Coding Visit Charges Inpatient E&M: 81345 Subs Hosp L2
[2021-07-24 21:57] VITALS: BP 126/47; PULSE 75; RESP 16; TEMP 36.6; O2SAT 97
[2021-07-24] MEDS: Atorvastatin Calcium 20 MG Tablet PO (22:01)
[2021-07-24] MEDS: dilTIAZem CD 120 MG Capsule PO (22:06)
[2021-07-25] MEDS: Acetaminophen 500 MG Tablet 1000 MG PO ×3 (05:40→22:11)
--- NOTE | 2021-07-25 07:29 | NURSING ---
PT WAS C/O HER ABD HURTING, WAS INC THIS AM OF A LARGE AMT OF URINE, WAS BLADDER SCANNED FOR >999ML, PT STRAIGHT CATHED HERSELF, 1200ML OUT, PT STATED SHE WAS TOLD TO INCREASE HER FLUID INTAKE D/T HER BP RUNNING LOWER YESTERDAY.
[2021-07-25 07:30] VITALS: BP 146/65; PULSE 79; RESP 16; TEMP 36.2; O2SAT 92
[2021-07-25] MEDS: Gabapentin 100 MG Capsule 200 MG PO ×3 (08:36→22:11)
[2021-07-25] MEDS: Lisinopril 10 MG Tablet 30 MG PO (08:36)
--- NOTE | 2021-07-25 11:59 | PCM.PN.BLA ---
Progress Note Afebrile VSS Maintaining appropriate oxygen saturation on RA Oral intake is good Her Attends was wet again this AM but she is not feeling the urge to go. She is able to do the straight cath herself now. Discussed with nursing - no problems that need addressed Reviewed the PT/OT notes Medication list reviewed. Diltiazem 120 mg was added to the drug regimen yesterday due to BP frequently above goal. Reanna tells me that she did not sleep well last night due to pain in the R upper posterior thigh. She only had 1 Tramadol yesterday and that was in the AM. She did get the Gabapentin as regularly scheduled. She denies chills, CP, SOB, calf pain, dysuria, pelvic pain, flank pain, N/V/Abd pain. She is happy with her progress. Physical Exam Const alert, oriented x3 and no apparent distress General Appearance: cooperative and well kempt Resp Resp Narrative: CTA, good inspiratory effort and excellent air exchange. Cardio Cardio Narrative: RRR with no MM and no ectopy. GI GI Narrative: Soft, NT, ND, normal BS's no guarding with palpation. No bladder distension. Back/Spine Back/Spine Narrative: The lumbar incision is intact with no dehiscence. There is no purulent DC. There is a rim of erythema immediately around the incision but no significant increase in warmth to touch. I suspect the redness is irritation from sliding/friction when she is moving around in the bed. Extremity Extremity Narrative: No calf pain. No ankle edema. Skin Skin Narrative: No rashes and no skin breakdown. Psych Psych Narrative: Normal affect, cooperative, not agitated, good energy. Assessment & Plan Assessment/Plan (1) Lumbar canal stenosis: QUALIFIERS: Neurogenic claudication status: with neurogenic claudication Qualified Code(s): M48.062 - Spinal stenosis, lumbar region with neurogenic claudication (2) History of lumbar laminectomy for spinal cord decompression: (3) Left foot drop: (4) Radicular pain of lower extremity: (5) Urine retention: (6) Normochromic normocytic anemia: PLAN: Plan 1. If she is having trouble sleeping again tonight she is going to ask for a Tramadol. I think she is just doing more in PT now and she is more tired and sore after therapy. If this is not effective will increase the Gabapentin at HS. 2. Lab ordered for Wednesday. 3. Continue PT/OT 4. Plan DC next Wednesday to home with her . She has a follow up with the surgeon to remove the carmencita next week. 5. Continue to monitor the incision and if the erythema increases or she has a fever or chills will start and antibiotic. Visit Charges Inpatient E&M: 30473 Subs Hosp L2
[2021-07-25] MEDS: traMADol 50 MG Tablet PO ×2 (12:00→22:11)
--- NOTE | 2021-07-25 13:58 | NURSING ---
patient straight cath self at this time. performed procedure without difficulty and with minimal cueing.
[2021-07-25 18:58] VITALS: BP 122/62; PULSE 75; RESP 14; TEMP 36.6; O2SAT 95
[2021-07-25] MEDS: Atorvastatin Calcium 20 MG Tablet PO (22:12)
[2021-07-25] MEDS: dilTIAZem CD 120 MG Capsule PO (22:13)
[2021-07-26] MEDS: Acetaminophen 500 MG Tablet 1000 MG PO ×3 (05:54→21:13)
[2021-07-26] MEDS: Gabapentin 100 MG Capsule 200 MG PO ×3 (08:01→21:12)
[2021-07-26 08:02] VITALS: BP 122/68; PULSE 77; RESP 16; TEMP 36.5; O2SAT 97
[2021-07-26] MEDS: Lisinopril 10 MG Tablet 30 MG PO (08:02)
[2021-07-26] MEDS: Senna/Docusate Sodium 1 Tablet 2 TABLET PO ×2 (08:02→21:12)
[2021-07-26] MEDS: traMADol 50 MG Tablet PO ×2 (08:09→15:59)
--- NOTE | 2021-07-26 10:53 | PN_ITS ---
Progress Note Afebrile VSS - The BP is much better with the addition of the Cardizem at night. AM BP is 122/68. She denies any lightheadedness. Maintaining appropriate oxygen saturation on RA Oral intake is good Discussed with nursing - no problems that need addressed Reviewed the PT/OT notes Medication list reviewed. She took a Tramadol at Bedtime last night and she slept well. Denies fever/chills/change in the back pain. Denies dysuria and she feels very comfortable with doing the catheterizations now. We discussed adding the Cardizem to her drug regimen and she was good with this. She said the pressure was very elevated when she was at [facility]. She would like to follow up with urology in [place] rather than at [facility] and she is OK with see ing Dr. Lu. Alert and oriented X 3 Lying in bed and appears comfortable The incision is still intact with no purulent DC and the redness around the carmencita is about the same as yesterday. There is no increased warmth to touch. HRRR Abd is soft and NT. She is not distended. Impression 1. Physical debility post Laminectomy for herniated disc 2. Radicular pain in the RLE and R buttock - adequately controlled with low dose Gabapentin 3. neurogenic urine retention - she feels comfortable doing the self cath now. She will follow up with Dr. Lu post DC. 4. HTN - within goal now with the addition of the Cardizem 5. Plan DC home with Tito on Wednesday and she has follow up surgery scheduled with orthopedics to remove the carmencita. Visit Charges Inpatient E&M: 24334 [facility] Hosp L1
[2021-07-26 19:24] VITALS: BP 118/60; PULSE 72; RESP 16; TEMP 36.8; O2SAT 96
[2021-07-26] MEDS: Atorvastatin Calcium 20 MG Tablet PO (21:12)
[2021-07-26] MEDS: dilTIAZem CD 120 MG Capsule PO (21:12)
[2021-07-26 22:00] VITALS: PULSE 73; RESP 16; O2SAT 98
[2021-07-27] MEDS: Acetaminophen 500 MG Tablet 1000 MG PO ×3 (07:00→20:00)
[2021-07-27 09:00] VITALS: BP 117/64; PULSE 68; RESP 16; TEMP 36.1; O2SAT 97
[2021-07-27] MEDS: Lisinopril 10 MG Tablet 30 MG PO (09:07)
[2021-07-27] MEDS: Senna/Docusate Sodium 1 Tablet 2 TABLET PO ×2 (09:07→20:00)
[2021-07-27] MEDS: Gabapentin 100 MG Capsule 200 MG PO ×3 (09:07→20:01)
[2021-07-27 18:52] VITALS: BP 129/63; PULSE 74; RESP 14; TEMP 36.8; O2SAT 96
[2021-07-27 19:16] VITALS: PULSE 74; RESP 16; O2SAT 97
[2021-07-27] MEDS: Atorvastatin Calcium 20 MG Tablet PO (20:00)
[2021-07-27] MEDS: dilTIAZem CD 120 MG Capsule PO (20:00)
[2021-07-28 05:52] LABS: Absolute Lymphocyte Count 1.26 X10^3/uL (0.83-4.51); Absolute Neutrophil Count 5.3 X10^3/uL (2.0-7.7); Basophil# 0.02 X10^3/uL; Basophil% 0.3 % (0-1); Eosinophil# 0.06 X10^3/uL; Eosinophils% 0.8 % (0-5); Hematocrit 28.1 % (37-47); Hemoglobin 8.9 g/dL (12.0-15.0); Lymphocyte # 1.26 X10^3/ul (0.83-4.51); Lymphocyte % 17.2 % (19-41); Mean Corp Hgb Conc 31.7 g/dL (32-36); Mean Corpuscular Hgb 27.9 pg (27.0-32.0); Mean Corpuscular Volume 88.1 fL (81-99); Mean Platelet Vol. 8.6 fl (6.2-12.0); Monocyte# 0.62 X10^3/uL; Monocyte% 8.5 % (0-10); NRBC Flagged by Analyzer 0 % (0-5); Neutrophil # 5.33 X10^3/uL (2.7-7.7); Neutrophil % 72.9 % (47-70); Platelet Count 257 K/mm3 (150-450); RBC Distribution Width CV 13.2 % (11.6-14.6); RBC Distribution Width SD 42.3 fl (35.1-43.9); Red Blood Count 3.19 M/mm3 (4.2-5.4); White Blood Count 7.3 K/mm3 (4.4-11.0)
[2021-07-28] MEDS: Acetaminophen 500 MG Tablet 1000 MG PO ×3 (06:14→20:50)
[2021-07-28 06:18] LABS: Anion Gap 6 (5-15); BUN 15 mg/dL (7-18); BUN/Creat Ratio 19.1 RATIO (10-20); Calcium,Total 8.6 mg/dL (8.5-10.1); Chloride 107 mmol/L (98-107); Creatinine, Serum 0.79 mg/dL (0.55-1.02); EST Glomerular Filtration Rate 76 mL/min (>60); Est Glom Filt Rate - Afr Amer 92 mL/min (>60); Estimated Creatinine Clearance 40.21 ml/min; Glucose 107 mg/dL (74-106); Potassium 3.8 mmol/L (3.5-5.1); Sodium Level 140 mmol/L (136-145)
[2021-07-28 08:00] VITALS: BP 122/59; PULSE 86; RESP 16; TEMP 36; O2SAT 95
[2021-07-28] MEDS: Gabapentin 100 MG Capsule 200 MG PO ×3 (08:44→20:27)
[2021-07-28] MEDS: Lisinopril 10 MG Tablet 30 MG PO (08:44)
--- NOTE | 2021-07-28 09:28 | PCM.PROGNOTE ---
Subjective Subjective Reanna was seen on TEAM rounds today and her Tito was present in the room for rounds. Tito then stayed for family teaching. Afebrile VSS -blood pressures are consistently within goal with the addition of Cardizem to her drug regimen. Heart rate is within normal limits. Maintaining appropriate oxygen saturation on RA Oral intake is good Good bowel function Sleeping well Discussed with nursing - no problems that need addressed Reviewed the PT/OT notes Medication list reviewed. Has not needed Tramadol since the . All lab was personally reviewed. Hemoglobin is stable at 8.9, up from 8.3 on 07/16/2021. The BMP is unremarkable. She is well hydrated. She tells me that she is sleeping good. She did have some reflux last night when she laid down right after taking the Tramadol last night. She has complained of reflux a couple times since being admitted to rehab. She is on no PPI or H2 soren and she tells me that she does not chronically have reflux. It is only the Tramadol at night that causes her reflux when she lies down. She denies shortness of breath, palpitations, left chest pain, nausea/vomiting/abdominal pain, dysuria, cephalgia, chills. Pain is well controlled. She is still only able to get a few droplets of urine out when she tries to urinate. She has no problems with catheterizing herself now while maintaining good technique. Objective Data Objective Data Vital Signs: Vital Signs Temp Pulse Resp BP Pulse Ox 96.8 F L 86 16 122/59 H 95 07/28/21 08:00 07/28/21 08:00 07/28/21 08:00 07/28/21 08:00 07/28/21 08:00 Oxygen Delivery Method Room Air Weight: 159 lb 2.78 oz Body Mass Index (BMI) 28.1 Intake & Output: Intake and Output for Last 24 Hours 07/26/21 07/27/21 07/28/21 23:59 23:59 23:59 Intake Total 1400 / 1950 2530 / 2530 1610 / 1610 Output Total 2600 / 3325 2600 / 2600 1080 / 1080 Balance -1200 / -1375 -70 / -70 530 / 530 Lab / Micro Data Result Diagrams: 07/28/21 05:41 07/28/21 05:41 Labs: Laboratory Results - last 24 hr 07/28/21 05:41: WBC 7.3, RBC 3.19 L, Hgb 8.9 L, Hct 28.1 L, MCV 88.1, MCH 27.9, MCHC 31.7 L, RDW Std Deviation 42.3, RDW Coeff of Jurgen 13.2, Plt Count 257, MPV 8.6, Immature Gran % (Auto) 0.300, Neut % (Auto) 72.9 H, Lymph % (Auto) 17.2 L, [place] % (Auto) 8.5, Eos % (Auto) 0.8, Baso % (Auto) 0.3, Absolute Neuts (auto) 5.3, Absolute Lymphs (auto) 1.26, Nucleated RBC % 0 07/28/21 05:41: Sodium 140, Potassium 3.8, Chloride 107, Carbon Dioxide 27.0, Anion Gap 6, BUN 15, Creatinine 0.79, Estim Creat Clear Calc 40.21, Est GFR (MDRD) Af Amer 92, Est GFR (MDRD) Non-Af 76, BUN/Creatinine Ratio 19.1, Glucose 107 H, Calcium 8.6 Physical Exam Const alert, oriented x3 and no apparent distress Constitutional Narrative: appears comfortable General Appearance: cooperative and well developed HEENT moist oral mucous membranes Eyes Eyes Narrative: No scleral icterus and no conjunctival injection. No mattering of the eyelashes and no DC from her eyes. Neck supple and No nodes Resp normal respiratory effort, normal air movement and clear to auscultation bilaterally Resp Narrative: Excellent air exchange, able to speak in complete sentences. Effort and Inspection: Negative for tachypneic Cardio regular rate, regular rhythm and no gallops GI normal to inspection, nondistended, normoactive bowel sounds, soft to palpation and non-tender GI Narrative: No guarding with palpation Extremity normal capillary refill and no calf tenderness General Extremity: Negative for edema Skin Skin Narrative: The back incision is stable with no dehiscence, no increased warmth to touch and no DC. There is some dark purple/red color just around the carmencita (mostly at the caudal end of the incision) which is more likely than not due to rubbing from the brace and friction from the sheets when scooting up and down in the bed. General Skin Exam: no breakdown Rashes: no rashes Neuro Neuro Narrative: She is now able to weakly dorsiflex the Left foot but, not against any resistance yet. she has some burning pain on the dorsum of the foot......likely due to the peroneal nerve dysfunction following the surgery.......possibly from positioning while in surgery. Psych thought process normal, cooperative and affect normal Appearance: appropriate Assessment & Plan Assessment/Plan (1) Physical debility: PLAN: Doing very well in therapy and will be safe to go home on 07/30/21. She will have HHC at [place] and she has been given home exercises to do by the therapists 1-2 times a day every day. We discussed DME on rounds and the is going to arrange for a WW and a 3-in-one toilet. Tito is looking into getting grab bars in the shower she will be using when she gets home. (2) History of lumbar laminectomy for spinal cord decompression: PLAN: Has a follow up appt scheduled with the surgeon on Wednesday after leaving rehab. (3) Radicular pain of lower extremity: PLAN: She had radicular pain in the R buttock and in the R anterior and posterior thigh and also has some Burning pain on the dorsum of the left foot. The pain is much better with Gabapentin. (4) Left foot drop: PLAN: Movement is coming back in the Left ankle and she is now able to weakly dorsiflex the left foot.......she could not do this at admission. Will continue thrapy with HHC post discharge. (5) Urine retention: PLAN: She is not able to pass more than a few drops of urine......may be an element of detrussor overactivity due to the spinal cord injury. Will try Mirabegron and start it today. She is going to follow up with Dr. Lu post [place]. (6) Normochromic normocytic anemia: PLAN: Immproving. (7) Bone lesion: PLAN: She has had 2 negative biopsies but, the oncologist they saw in [place] told them that she definitely had CA? Will set them up with an appt with Dr. Kessler or Dr. Burnett for a second opinion. They are agreeable with this plan. (8) Hypertension: QUALIFIERS: Hypertension type: primary hypertension Qualified Code(s): I10 - Essential (primary) hypertension PLAN: Controlled with the addition of Cardizem to her drug regimen......will continue to monitor since Mirabegron can increase the BP. Charges/Coding Visit Charges Inpatient E&M: 50211 Subs Hosp L2
--- NOTE | 2021-07-28 13:12 | CASEMGMT ---
Addendum entered by Crystal Poole 07/28/21 15:41: Pt requesting [facility] HHC. Referral made for PT/OT/SN. Original Note: Social Work IDT met with patient and for Team meeting. Discussed patient's progress in PT/OT/SN. Pt is scheduled to DC 07/30 home with . Pt requesting HHC first then transition to outpatient at [facility]. Provided pt with [facility] list of quality and resource data that are in desired area and in-network with insurance. Pt requesting [facility] and 3-in-1 commode. Referral made to [facility]. to transport. Plan: DC home with 07/30, [facility] PT/OT/SN, [facility], [facility] Crystal Poole, CARGO SERVICE AGENT STEAM FITTER
[2021-07-28] MEDS: Mirabegron 25 MG TAB.ER.24H PO (17:40)
[2021-07-28 19:45] VITALS: BP 133/69; PULSE 88; RESP 16; TEMP 36.7; O2SAT 95
[2021-07-28] MEDS: Atorvastatin Calcium 20 MG Tablet PO (20:28)
[2021-07-28] MEDS: dilTIAZem CD 120 MG Capsule PO (20:28)
--- NOTE | 2021-07-29 04:42 | NURSING ---
Reviewed and agree with SECURITY AMBASSADOR documentation and assessment charting.
[2021-07-29] MEDS: Acetaminophen 500 MG Tablet 1000 MG PO ×3 (06:13→21:18)
[2021-07-29 07:06] VITALS: BP 134/75; PULSE 80; RESP 18; TEMP 36.5; O2SAT 96
[2021-07-29] MEDS: Lisinopril 10 MG Tablet 30 MG PO (08:28)
[2021-07-29] MEDS: Gabapentin 100 MG Capsule 200 MG PO ×3 (08:28→20:04)
--- NOTE | 2021-07-29 09:33 | DCINST_ITS ---
Discharge Instructions Diet Discharge Diet: - (Low fat, low salt. Salt increases the BP and causes ankle swelling. ) Activity Discharge Activity: May Not Drive, Use Walker and - (OK to use a cane in the house but, for longer distances in the community a walker is best. ) Ice area for (Minutes): 15 (15 minutes at a time to help with pain control gonsalo after exercise.) Weight Bearing Status: Full weight bearing Additional Activity Instructions:: No bending, lifting more than 10 lbs or twisting. Dressing / Incision Call your doctor if your incision/area has: Continuous Slow Oozing, Increased Pain/ Swelling, Increased Redness, Foul Smelling Discharge and Swelling at the incision site Call your doctor if you observe: Inability to have a bowel movement, Shortness of breath, Dizziness, Chest pain, Increased palpitations (irregular heartbeat), Calf discomfort, Uncontrolled pain and - (Fever > 100.4 F) Suture Line Care: Avoid Pulling/Pushing, Avoid Pinching/Bending and - (You can leave the incision open to air or cover with a light dry dressing to cut down on irritation from the brace.) Cleanse incision/area with: Soap & Water Additional Dressing/Incision Instructions:: Have Tito look at the incision daily for the next 10-14 days to make sure there is no increasing redness, increased swelling or discharge from the wound (gonsalo if it has an odor). Follow Up Care Please Follow Up With: Jenna Weiner MD When: Has an appt on 07/30/21 with the surgeon to remove the carmencita. Follow up with Dr. Weiner in 7-10 days. Follow up with Dr. Lu for urine retention. Test Results: Test results from this visit will be discussed in further detail at your follow- up appointment, if applicable. Pending Tests Upon Discharge: none Discharge Plan Admission Admit Date/Time: 07/15/21 16:48 Primary Reason for Your Visit: Physical debility due to herniated lumbar disc and Laminectomy at L4-5. Attending Provider: Lexi Ott Primary Care Provider: Jenna Weiner Instructions Patient Instructions: Discharge Instructions for ..., Low Salt Diet Dc, ED Foot Drop Additional Instructions / Restrictions: 1. No bending, lifting or twisting until the surgeon tells you it is OK. 2. Have Tito check the incision every day for the next 10-14 days and let the surgeon or Dr. Weiner know if there is increasing redness, increasing swelling, DC form the wound or increasing warmth to touch around the wound. Also let Dr. Weiner know if you are having fevers, chills, painful urination, nausea, vomiting or pain in the pelvis. 3. You will be seeing Dr. Lu for urine retention. She is a urologist and you will like her. Sometimes it helps to take a list of the questions you have to your appt with you so you do not forget to ask any questions you may have. 4. It has been a real pleasure to meet you and Tito. You have worked hard and done very well. If you need our help in the future I hope you will come back to see us! 5. Your BP has been consistently mildly elevated while you have been in rehab. Initially I increased the Lisinopril to 40 mg daily but, this did not have any effect on lowering the BP. Next we added a small dose of Cardizem to your drug regimen and your BP is now well controlled. Keeping your BP controlled is important in preventing strokes and cardiovascular events. The risk factors for strokes and cardiovascular disease include high blood pressure, elevated cholesterol, smoking, Diabetes and being over the age of 50 if you are a female. Regular exercise and maintaining a healthy weight also help to decrease stroke risk. The goal for BP control is < 130/80. STROKE WARNING SIGNS: 1. Sudden numbness or weakness of the face, arm or leg especially if on one side of the body only 2. Sudden confusion, trouble speaking or understanding speech 3. Sudden trouble seeing in 1 eye or both eyes 4. Sudden trouble walking, dizziness, loss of balance or incoordination 5. Sudden severe headache with no known cause 6. To help avoid any additional surgeries on your back avoid heavy lifting, maintain a healthy weight and keep your core strength strong. 7. I hope that you continue to do well in your ongoing recovery. If you or Tito have any questions after you leave rehab please do not hesitate to call me. Office: [phone] Discharge Orders/Prescriptions Prescriptions: New acetaminophen 500 mg Tablet 1,000 mg PO Q8 PRNQty: 0 0RF diltiazem HCl 120 mg Capsule,Extended Release 24hr 120 mg PO QHS Qty: 30 0RF gabapentin 100 mg Capsule 200 mg PO 3XD Qty: 90 0RF Rx Instructions: Take this with breakfast, with supper and 1 hour prior to bedtime. tramadol 50 mg Tablet 50 mg PO Q6H PRN PRN (Reason: Pain Score 4-10) Qty: 21 0RF Continued atorvastatin 20 mg tablet 20 mg PO DAILY Label Comments: Take 1 tablet by mouth once daily. lisinopril 30 mg tablet 30 mg PO DAILY Label Comments: TAKE 1 TABLET BY MOUTH DAILY cholecalciferol (vitamin D3) 25 mcg (1,000 unit) capsule 10 mcg PO DAILY Label Comments: TAKE 1 CAPSULE ONCE DAILY Changed tizanidine 4 mg tablet 2 mg PO TID PRN PRN (Reason: Spasms) Qty: 10 0RF Held diclofenac sodium 75 mg tablet,delayed release (DR/EC) 75 mg PO DAILY Hold Instructions: Do not start this medication until you clear this with the surgeon. Discontinued cefadroxil 500 mg Capsule 500 mg PO BID Rx Instructions: FOR 10 DAYS, START 07/15/21 Referrals / Follow Up: Fernando Hogan MD [NON-STAFF] - 07/30/21 1:20 pm Jenna Weiner MD [Primary Care Provider] - 08/05/21 10:00 am Disposition Disposition (needs filled in before D/C Order can be placed): Home Health Service
[2021-07-29] MEDS: Mirabegron 25 MG TAB.ER.24H PO (09:45)
--- NOTE | 2021-07-29 10:22 | DS.PCM_ITS ---
Providers Date of Admission: 07/15/21 Date of Discharge: 07/30/21 Primary Care Physician: Dr. Jenna Weiner MD Reason For Visit: LAMINECTOMY L4 L5 Diagnosis Discharge Diagnosis (1) Physical debility: Status: Acute Code(s): R53.81 - Other malaise (2) History of lumbar laminectomy for spinal cord decompression: Status: Acute Code(s): Z98.890 - Other specified postprocedural states Plan: L4-5 on 07/08/[address] Aiken. Went back to surgery on 07/09/21 to drain a hematoma. (3) Radicular pain of lower extremity: Status: Acute Code(s): M54.10 - Radiculopathy, site unspecified Plan: R buttock and R thigh. Left dorsum of the foot. (4) Left foot drop: Status: Acute Code(s): M21.372 - Foot drop, left foot Plan: Has an AFO for the L leg. (5) Urine retention: Status: Acute Code(s): R33.9 - Retention of urine, unspecified Plan: Likely neurogenic bladder. Has been taught how to straight cath. she is able to perform the task well and feels comfortable doing the procedure. She will follow up with Dr. Esther Lu for urologic care. (6) Normochromic normocytic anemia: Status: Acute Code(s): D64.9 - Anemia, unspecified Plan: Due to acute blood loss. (7) Bone lesion: Status: Acute Code(s): M89.9 - Disorder of bone, unspecified Plan: She has had 2 negative biopsies. The second bx was done by Dr. Hogan at the time of the laminectomy on 07/08/21. she plans on following up with Dr. Burnett from oncology for a second opinion. The oncologist she saw in [place] told her the bone lesion was malignant, even though the biopsy was negative. (8) Hypertension: Status: Chronic Code(s): I10 - Essential (primary) hypertension Qualifiers: Hypertension type: primary hypertension Qualified Code(s): I10 - Essential (primary) hypertension Plan: BP is well controlled at DC on Lisinopril 30 mg Q AM and Cardizem CD 120 mg Q HS. Plan DC home with [facility] for PT/OT/SN and will transition to OP therapy at [facility] in a few weeks. DME ordered includes a 3-in-1 commode and a FWW. She has an appt with Dr. Hogan on 07/30/21 to remove the carmencita. An appt was made for her to see Dr. Burnett for a second opinion regarding follow up on the bone lesion with 2 negative biopsies. Will follow up with Dr. Esther Lu for neurogenic bladder. She will follow up with Dr. Weiner in 7-10 days. Medications at Discharge Home Medications atorvastatin 20 mg tablet 20 mg PO DAILY Check with primary doctor 07/15/21 cholecalciferol (vitamin D3) 25 mcg (1,000 unit) capsule 10 mcg PO DAILY Check with primary doctor 07/15/21 diclofenac sodium 75 mg tablet,delayed release 75 mg PO DAILY Check with primary doctor 07/15/21 lisinopril 30 mg tablet 30 mg PO DAILY Check with primary doctor 07/15/21 acetaminophen 500 mg tablet 1,000 mg PO Q8 PRN #0 tabs 07/29/21 diltiazem HCl 120 mg capsule,extended release 24 hr 120 mg PO QHS #30 caps 07/29/21 gabapentin 100 mg capsule 200 mg PO 3XD #90 caps 07/29/21 tizanidine 4 mg tablet 2 mg PO TID PRN PRN Spasms #10 tabs 07/29/21 tramadol 50 mg tablet 50 mg PO Q6H PRN PRN Pain Score 4-10 #21 tabs 07/29/21 tramadol 50 mg tablet 50 mg PO Q6H PRN pain #28 tabs 08/04/21 Hospital Course Operations - (1. L4-5 Laminectomy at [facility] by Dr. Hogan on 07/08/21. 2. Evacuation of hematoma on 07/09/21. ) Procedures None Summary of Care Provided Minutes Spent on Discharge: 40 Hospital Course: REANNA COSTA, is a 76 YO? 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 CT scans of the chest/abd and pelvis showed no signs of CA per Reanna.? She? had a bone bx that was negative for malignancy.? She recently had another bx by Dr. Hogan and it too is negative. At the time of the bone bx on 07/08/21 she also underwent a laminectomy of L4-5.?The bone biopsy showed no malignant cells. On 07/09/21 she went back to surgery to drain a hematoma. She was still incontinent of urine post-op and she was having persistent pain in the R buttock, R thigh and R lateral hip area.? She had numbness of the? Left lateral calf and the dorsum of the left foot at admission to rehab. ? She had an AFO for the Left foot made while she was at [facility]. Post operatively she was seen by PT and acute rehab was recommended.? She lives in a single story house with a basement with her spouse, Tito.? She has 2 steps with a HR to enter her house.? She had been walking with a quad cane prior to the surgery.? Reanna was transferred to the acute inpt rehab unit at [facility] on 07/15/21 for 3 hours of therapy daily to restore function at or near her level prior to the recent surgery.? The pain in the R buttock and thigh was severe and impaired her sleep. She was started on Gabapentin 100 mg TID and had some relief but, she felt it could be better. The dose was increased to 200 mg TID and she is sleeping well and is satisfied with her pain control at the time of discharge from rehab. When she was admitted to rehab she was on Duricef for a CAUTI that was started at [facility]. She had a total of 7 days of tx. The Luis catheter was discontinued while in rehab and she was unable to urinate so we elected to straight cath every 6 hours rather than reinsert the Luis since the risk for infection is lower with intermittent catheterization. She was constipated and this is one of the most common reasons why women retain urine so she was started on a bowel regimen. Even after she was cleaned out she continued to have urine retention. She was instructed in self catheterization prior to discharge and is comfortable perform ing the procedure at the time of discharge. She is going to follow up with Dr. Esther Lu from neurology. Her BP was monitored closely while on rehab and BP was consistently above goal on Lisinopril 30 mg daily. Lisinopril was increased to 40 mg daily and this had no effect on the BP. The dose was decreased to 30 mg again and Cardizem CD 120 mg at was added to the drug regimen. Prior to DC the BP is well controlled. Reanna did very well in therapy. Prior to discharge she was able to do 14 stands in 30 seconds. She was able to do the tug test in 17.44 seconds at standby assist with a wheeled walker. Her goal was to do it in less than 35 seconds. She was able to ascend/descend 5 steps with 1 handrail at standby assist/contact-guard assist. She had ambulated 500 feet at standby assist with a wheeled walker on various surfaces. She was independent with eating and required only set up for grooming. She was supervision/set up for bathing, upper body dressing, toilet transfer and toileting. She required only minimal assistance with lower body dressing. She was contact-guard assist with tub/shower transfer. She was proficient at performing her own intermittent catheterization. She was discharged home on 07/30/21 with her Tito. She will have [facility] for PT/OT/SN and then transition to OP therapy at [facility]. DME at [facility] included a FWW and BSC and [facility] She will follow up with Dr. Weiner, Dr. Lu and the surgeon post [facility]. Physical Exam Const alert, oriented x3 and no apparent distress Constitutional Narrative: Making good eye contact, appropriate General Appearance: cooperative and comfortable HEENT moist oral mucous membranes Eyes PERRL and EOMs intact bilaterally Eyes Narrative: No scleral icterus and no conjunctival injection or eye discharge. Neck no lymphadenopathy, supple, no JVD and no carotid bruits Resp normal respiratory effort, no use of accessory muscles and clear to auscultation bilaterally Resp Narrative: Not tachypneic and no conversational dyspnea. Cardio regular rate, regular rhythm, S1 normal heart sound, S2 normal heart sound, no murmurs, no rub and no gallops GI normal to inspection, nondistended, normoactive bowel sounds and non-tender GI Narrative: No guarding with palpation. Extremity no clubbing, cyanosis or edema Extremity Narrative: Negative Shlomo's and Jie's signs Skin Skin Narrative: No rashes, no skin breakdown. General Skin Exam: no breakdown Rashes: no rashes Neuro oriented x3 and CN's II-XII intact bilaterally Neuro Narrative: She has Left foot drop but, she is now able to weakly dorsiflex the foot without any resistance. she has an AFO and will continue to wear it. Motor Exam: strength 5/5 throughout Psych affect normal Psych Narrative: Appropriate, making good eye contact. Able to stay on topic and focus. No flight of ideas. Does not appear anxious or depressed. Conversant and relating well to staff. Weight / BMI Weight Weight: 159 lb 2.78 oz Body Mass Index (BMI) 28.1 ABG / Lab / Microbiology Data Result Diagrams: 07/28/21 05:41 07/28/21 05:41 D/C Instructions Discharge Diet: - (Low fat, low salt. Salt increases the BP and causes ankle swelling. ) Ice area for (Minutes): 15 (15 minutes at a time to help with pain control gonsalo after exercise.) Weight Bearing Status: Full weight bearing Additional Activity Instructions: No bending, lifting more than 10 lbs or twisting. Call your doctor if your incision/area has: Continuous Slow Oozing, Increased Pain/ Swelling, Increased Redness, Foul Smelling Discharge and Swelling at the incision site Call your doctor if you observe: Inability to have a bowel movement, Shortness of breath, Dizziness, Chest pain, Increased palpitations (irregular heartbeat), Calf discomfort, Uncontrolled pain and - (Fever > 100.4 F) Suture Line Care: Avoid Pulling/Pushing, Avoid Pinching/Bending and - (You can leave the incision open to air or cover with a light dry dressing to cut down on irritation from the brace.) Cleanse incision/area with: Soap & Water Additional Dressing/Incision Instructions: Have Tito look at the incision daily for the next 10-14 days to make sure there is no increasing redness, increased swelling or discharge from the wound (gonsalo if it has an odor). Please Follow Up With: Jenna Weiner MD When: Has an appt on 07/30/21 with the surgeon to remove the carmencita. Follow up with Dr. Weiner in 7-10 days. Follow up with Dr. Lu for urine retention. Meaningful Use Info Meaningful Use Diagnoses (Choose all that apply): None applicable Discharge Plan Admission Admit Date/Time: 07/15/21 16:48 Primary Reason for Your Visit: Physical debility due to herniated lumbar disc and Laminectomy at L4-5. Attending Provider: Lexi Ott Primary Care Provider: Jenna Weiner Instructions Patient Instructions: Discharge Instructions for ..., Low Salt Diet Dc, ED Foot Drop Additional Instructions / Restrictions: 1. No bending, lifting or twisting until the surgeon tells you it is OK. 2. Have Tito check the incision every day for the next 10-14 days and let the surgeon or Dr. Weiner know if there is increasing redness, increasing swelling, DC form the wound or increasing warmth to touch around the wound. Also let Dr. Weiner know if you are having fevers, chills, painful urination, nausea, vomiting or pain in the pelvis. 3. You will be seeing Dr. Lu for urine retention. She is a urologist and you will like her. Sometimes it helps to take a list of the questions you have to your appt with you so you do not forget to ask any questions you may have. 4. It has been a real pleasure to meet you and Tito. You have worked hard and done very well. If you need our help in the future I hope you will come back to see us! 5. Your BP has been consistently mildly elevated while you have been in rehab. Initially I increased the Lisinopril to 40 mg daily but, this did not have any effect on lowering the BP. Next we added a small dose of Cardizem to your drug regimen and your BP is now well controlled. Keeping your BP controlled is important in preventing strokes and cardiovascular events. The risk factors for strokes and cardiovascular disease include high blood pressure, elevated cholesterol, smoking, Diabetes and being over the age of 50 if you are a female. Regular exercise and maintaining a healthy weight also help to decrease stroke risk. The goal for BP control is < 130/80. STROKE WARNING SIGNS: 1. Sudden numbness or weakness of the face, arm or leg especially if on one side of the body only 2. Sudden confusion, trouble speaking or understanding speech 3. Sudden trouble seeing in 1 eye or both eyes 4. Sudden trouble walking, dizziness, loss of balance or incoordination 5. Sudden severe headache with no known cause 6. To help avoid any additional surgeries on your back avoid heavy lifting, maintain a healthy weight and keep your core strength strong. 7. I hope that you continue to do well in your ongoing recovery. If you or Tito have any questions after you leave rehab please do not hesitate to call me. Office: [phone] Discharge Orders/Prescriptions Prescriptions: New acetaminophen 500 mg Tablet 1,000 mg PO Q8 PRNQty: 0 0RF diltiazem HCl 120 mg Capsule,Extended Release 24hr 120 mg PO QHS Qty: 30 0RF gabapentin 100 mg Capsule 200 mg PO 3XD Qty: 90 0RF Rx Instructions: Take this with breakfast, with supper and 1 hour prior to bedtime. tramadol 50 mg Tablet 50 mg PO Q6H PRN PRN (Reason: Pain Score 4-10) Qty: 21 0RF tramadol 50 mg tablet 50 mg PO Q6H PRN (Reason: pain) Qty: 28 0RF Continued atorvastatin 20 mg tablet 20 mg PO DAILY Label Comments: Take 1 tablet by mouth once daily. lisinopril 30 mg tablet 30 mg PO DAILY Label Comments: TAKE 1 TABLET BY MOUTH DAILY cholecalciferol (vitamin D3) 25 mcg (1,000 unit) capsule 10 mcg PO DAILY Label Comments: TAKE 1 CAPSULE ONCE DAILY Changed tizanidine 4 mg tablet 2 mg PO TID PRN PRN (Reason: Spasms) Qty: 10 0RF Held diclofenac sodium 75 mg tablet,delayed release (DR/EC) 75 mg PO DAILY Hold Instructions: Do not start this medication until you clear this with the surgeon. Discontinued cefadroxil 500 mg Capsule 500 mg PO BID Rx Instructions: FOR 10 DAYS, START 07/15/21 Referrals / Follow Up: Fernando Hogan MD [NON-STAFF] - 07/30/21 1:20 pm Esther Lu MD [STAFF PHYSICIAN] - 08/06/21 1:00 am (New pt paper work will be mailed out, please come in early to fill out if you do not receive. ) Jenna Weiner MD [Primary Care Provider] - 08/05/21 10:00 am Disposition Disposition (needs filled in before D/C Order can be placed): Home Health Service Charges/Coding Visit Charges Inpatient E&M: 60468 Disch Hosp
--- NOTE | 2021-07-29 13:28 | NURSING ---
agree with assessment and finding by security engineer
[2021-07-29 19:50] VITALS: BP 131/70; PULSE 89; RESP 14; TEMP 36.8; O2SAT 97
[2021-07-29] MEDS: dilTIAZem CD 120 MG Capsule PO (21:17)
[2021-07-29] MEDS: Atorvastatin Calcium 20 MG Tablet PO (21:17)
[2021-07-30] MEDS: Acetaminophen 500 MG Tablet 1000 MG PO (05:33)
[2021-07-30 07:44] VITALS: BP 100/76; PULSE 86; RESP 12; TEMP 36; O2SAT 97
[2021-07-30] MEDS: Mirabegron 25 MG TAB.ER.24H PO (08:04)
[2021-07-30] MEDS: Gabapentin 100 MG Capsule 200 MG PO (08:04)
[2021-07-30] MEDS: Lisinopril 10 MG Tablet 30 MG PO (08:04)
--- NOTE | 2021-07-30 11:15 | NURSING ---
Discharged home with spouse. Discharge instructions, medications and appointments reviewed with pt and family. denies questions or concerns
[2021-07-30] MEDS: traMADol 50 MG Tablet PO (11:28)
[2021-07-30 12:04] VITALS: BP 109/76; PULSE 86; RESP 12; TEMP 36; O2SAT 97
== END 2021-07-30 11:15 | disposition home health service (06) | DRG 560 ==
PROVIDERS: Admitting Provider Internal Medicine; PCP Internal Medicine; Visit Provider Internal Medicine
DX: Z47.89 Encounter for other orthopedic aftercare (principal); D62 Acute posthemorrhagic anemia; M51.16 Intervertebral disc disorders with radiculopathy, lumbar region; E78.5 Hyperlipidemia, unspecified; M48.062 Spinal stenosis, lumbar region with neurogenic claudication; I10 Essential (primary) hypertension; M21.372 Foot drop, left foot; M89.9 Disorder of bone, unspecified; T83.511D Infection and inflammatory reaction due to indwelling urethral catheter, subsequent encounter; N39.490 Overflow incontinence; N31.9 Neuromuscular dysfunction of bladder, unspecified; R33.9 Retention of urine, unspecified; Z79.899 Other long term (current) drug therapy
CPT/HCPCS: 36415; 74018; 80048; 80076; 81001; 83735; 84100; 85014; 85018; 85025; 85027; 97110; 97116; 97162; 97166; 97530; 97535; 97802; 99251; G0463

== ENCOUNTER → 2021-08-06 | Outpatient (CLI) | payer MEDICARE, OTHER, SELFPAY ==
--- NOTE | 2021-08-06 14:28 | RAD_ITS ---
STUDY: X-RAY - LEFT ANKLE REASON FOR EXAM: Female, 76 years old. SPRAIN TECHNIQUE: 3 view(s) of the ankle. COMPARISON: None. FINDINGS: Normal visualized distal tibia and fibula. Normal medial and lateral malleoli. Normal tibiotalar articulation and ankle mortise. Calcaneal spurs. The visualized subtalar, talonavicular, calcaneocuboid and tarsal articulations are normal. Soft tissue swelling. RAD/Ankle min 3 Views IMPRESSION: Soft tissue swelling. Calcaneal spurs. Electronically Signed: Joni Painting MD at 15:12 EDT ,
== END | disposition home or self-care (01) ==
LOC: MTRAD 14:26
PROVIDERS: PCP Internal Medicine; Referring Provider Urology; Visit Provider Urology
DX: M25.572 Pain in left ankle and joints of left foot (principal); S93.402A Sprain of unspecified ligament of left ankle, initial encounter
CPT/HCPCS: 73610

== ENCOUNTER 2021-09-17 17:30 | Outpatient (RCR) | payer MEDICARE, OTHER, SELFPAY ==
--- NOTE | 2021-09-15 13:17 | HP.PTEVAL ---
Patient's Visit Information HUMBERTO COSTA is a 76 year old F referred to Physical Therapy by GILMER MCLAUGHLIN with a diagnosis of LESION OF LUMBAR SPINE. Date of Evaluation: 09/15/21 Physical Therapist: Mariah Connelly PT, Cert MDT - Visit Plan Frequency: 2x /Week Duration: 4 Weeks Plan: GIVE WRITTEN HEP PROGRAM. GAIT AND BALANCE TRAINING. POSTURE CORRECTION/STRENGTHENING, INSTRUCTION IN APPROPRIATE BODY MECHANICS AND ACTIVITY MODIFICATIONS. DLS WITH NEURTAL SPINE ONLY. TAMMY LE ROM, STRETCHING AND STRENGTHENING. HEP INSTRUCTION. - Subjective Work/Leisure: RETIRED. Disability: NO. Present symptoms: CURRENTLY LEFT LATERAL LEG PAIN, NUMBNESS AND TINGLING. DENIES LB, L HIP AND L THIGH PAIN. BUT DID HAVE TAILBONE AND PAIN DOWN BOTH LEGS BEFORE BACK SURGERY BY DR. SANTOS APPROX July AND . PATIENT REPORTS SHE HAD NEEDLE BIOPSY IN JUNE 2021 THEN 2 SURGERIES FOR BIOPSY ONE DAY AFTER THE OTHER APPROX July AND . Present since: ABOUT 2 YEARS AGO. Pain Scale: WORST 2/10, LEAST 0/10. Currently: 0/10. Commenced as a result of: BONE MASS - NOT CANCEROUS. Symptoms at onset: TAMMY LEG PAIN (STARTED ABOUT 2 YEARS AGO). Worse: LAYING DOWN AND TRYING TO GET LEFT LEG COMFORTABLE, TWISTING ANKLE (BRACE CAME LOOSE AND LET ANKLE TWIST ONCE AND ONCE OUT OF SHOWER). THE BRACE AGGRAVATES BIG TOE SOMETIMES. Better: TAKING BRACE OFF AND PROPPING FOOT UP WHILE IN RECLINER. Disturbed sleep: NO. I'M SLEEPING GOOD NOW UNTIL I HAVE TO GET UP AND GO TO THE BATHROOM. Previous history/Previous treatment: HISTORY OF LEG PAIN X APPROX 2 YEARS. SOON I HAD THE SURGERY AT [facility] I HAD NO LEG PAIN (EXCEPT THE OUTSIDE OF LEFT LEG). DEVELOPED L FOOT DROP RIGHT AFTER THE SURGERY. PATIENT REPORTS SHE DEVELOPED PROBLEMS GOING TO THE BATHROOM RIGHT AFTER SURGERY TOO. STATES SHE DOESN'T NEED THE CATHETOR ANYMORE BUT 1/2 THE TIME SHE CAN'T FEEL SHE HAS TO GO TO THE BATHROOM AND IN HER PRIVATE AREA. VANDANA'T PENDING WITH NEUROLOGIST AND FOLLOW UP WITH DR. GONZALES PENDING TOO NEXT MONTH. Coughing/sneezing/straining: NEGATIVE FOR PAIN. Gait: I DON'T DARE WALK WITHOUT THE BRACE. EVEN PUTS BRACE ON TO GO TO THE BATHROOM AT NIGHT. WITHOUT BRACE SHE TRIPS AND TWISTS HER ANKLE. USING THE WALKER ALL THE TIME. USES ROLLATOR IN HOUSE AND FWW OUTSIDE OF HOME. PRACTICING WITH CANE AT HOME BUT UNSTEADY. Accidents: NO. Unexplained weight loss: NO. PMH/Recent major surgery: HTN, HIGH CHOLESTEROL, LOW IRON. PLOF (Prior Level of Function): PATIENTS REPORTS MORE DIFFICULTY MOVING FROM ROOM TO ROOM AND TRYING TO CARRY THINGS NOW THAN BEFORE SURGERY. HER PAIN IS BETTER SINCE SURGERY BUT HER FUNCTION IS WORSE. ABLE TO WALK WITHOUT ASSISTVE DEVICE OR BRACE BEFORE SURGERY. OTHER: PRESENT DURING EVAL. PATIENT REPORTS SHE WAS MIS-DIAGNOSED WITH CANCER IN JUNE 2020 AND RECEIVED ONE RADIATION TREATMENT. [facility] FLOOR REHAB AND HOME PT WITH LAST VISIT BEING ABOUT 2 WEEKS AGO. BACK BRACE UNTIL RECENTLY - Objective Sitting/Standing Posture: POOR. FH. RSH'S. SLOUCHED IN SITTING. Active Correction of posture: NE. Other Observations: THIS PATIENT AMBULATES INDEP'LY INTO PT WITH DECREASED CADANCE, FWW AND AFO ON LLE. Sensory deficit: DECREASED RIGHT LITTLE TOE AND L LE BELOW THE KNEE LIGHT TOUCH SENSATION. ROM deficit: MILD HS TIGHTNESS. L ANKLE IN AFO AND NT. Motor deficit: RIGHT LE: HIP 4/5, KNEE 5/5 AND ANKLE 5/5. LLE: HIP 4/5, KNEE 4/5, ANKLE - FOOT DROP - IN AFO. Dural Signs: NEGATIVE TAMMY LE'S. Lumbar mvmt loss: NT. Core strength: POOR. OTHER: SEE TUG TEST AND STS TEST BELOW. - Balance/Special Test Scores Oswestry Low Back Score: 13 TUG Test Time Seconds: 17.63 30 Second Chair Rise Test Seconds: 8 - Goals Goal 1:: DECREASE C/O L LEG PAIN Goal Time Frame: 2-4 Weeks Goal 2:: IMPROVE STANDING, WALKING, LIFTING, REACHING AND ADL FUNCTION. Goal Time Frame: 2-4 Weeks Goal 3:: INSTRUCT IN PROPHYLAXIS Goal Time Frame: 2-4 Weeks - Anticipated Interventions Patient/Client Instruction: Educate patient on: Condition, Plan of Care, Risk Factors For the Purpose of:: To facilitate caregiver knowledge Therapeutic Exercise to Include: Strength training, Agility training, Postural training, Flexibilty training, Gait and locomotor training, Neuromotor development, Dynamic Lumbar Stabilization For the Purpose of:: To decrease pain, To increase ROM, To improve muscle performance and motor function, To increase tolerance to activity/condition/position, To improve ability of physical actions for home/community/work/leisure, To improve gait and locomotor functions Thank you for the opportunity to evaluate your patient. For Medicare and Medicare HMO plans, please review the plan of care and approve it. It will need to be FAXED BACK to us at [phone] for Medicare purposes. For Medicare only, by signing this I certify the plan of care. Please let me know if there are questions or concerns regarding this plan of care. Physician Signature: Date:
--- NOTE | 2021-11-18 12:34 | HP.PT.NRP ---
HUMBERTO COSTA was seen in my office for initial evaluation on 09/15/21. The following Plan of Care was established for this patient: Initial Frequency: 2x /Week Initial Duration: 4 Weeks Patient/Client Instruction: Educate patient on: Condition, Plan of Care, Risk Factors For the Purpose of:: To facilitate caregiver knowledge Therapeutic Exercise to Include: Strength training, Agility training, Postural training, Flexibilty training, Gait and locomotor training, Neuromotor development, Dynamic Lumbar Stabilization For the Purpose of:: To decrease pain, To increase ROM, To improve muscle performance and motor function, To increase tolerance to activity/condition/position, To improve ability of physical actions for home/community/work/leisure, To improve gait and locomotor functions This patient was last seen in our office 09/17/21. Pertinent comments regarding their Physical therapy will appear below: This patient has not returned to Physical Therapy and is appropriate to return to MD for further follow-up as needed. At this point I will be discontinuing this patient from physical therapy. I would be happy to see this patient again in the future if found appropriate by the physician. Thank you! Mariah Connelly, PT, Cert MDT Balance/Gait/Functional tests - Balance/Special Test Scores Oswestry Low Back Score: 13 TUG Test Time Seconds: 17.63 Tug Test: 20-30sec.=variable mobility 30 Second Chair Rise Test Seconds: 8
== END 2021-09-17 19:00 | disposition home or self-care (01) ==
LOC: PT 17:30
PROVIDERS: PCP Internal Medicine
DX: M89.9 Disorder of bone, unspecified (principal)
CPT/HCPCS: 97110; 97116; 97162

== ENCOUNTER → 2021-12-09 | Outpatient (CLI) | payer MEDICARE, OTHER, SELFPAY ==
[2021-12-09 15:38] LABS: Anion Gap 4 (5-15); BUN 11 mg/dL (7-18); BUN/Creat Ratio 13.3 RATIO (10-20); Calcium,Total 9.1 mg/dL (8.5-10.1); Chloride 105 mmol/L (98-107); Creatinine, Serum 0.83 mg/dL (0.55-1.02); EST Glomerular Filtration Rate 71 mL/min (>60); Est Glom Filt Rate - Afr Amer 86 mL/min (>60); Glucose 72 mg/dL (74-106); Potassium 3.3 mmol/L (3.5-5.1); Sodium Level 141 mmol/L (136-145)
== END | disposition home or self-care (01) ==
PROVIDERS: PCP Internal Medicine; Referring Provider Urology; Visit Provider Urology
DX: R33.9 Retention of urine, unspecified (principal)
CPT/HCPCS: 36415; 80048

== ENCOUNTER 2022-12-08 12:48 | Emergency (ER) | payer MEDICARE, OTHER, SELFPAY ==
[2022-12-08 12:49] VITALS: BP 144/82; PULSE 118; RESP 18; TEMP 35.9; O2SAT 95
[2022-12-08 13:40] VITALS: BP 124/72; PULSE 104; RESP 18; TEMP 36.4; O2SAT 96
--- NOTE | 2022-12-08 14:14 | EX.ED.DYSGE1 ---
"HPI History of Present Illness Chief Complaint: Nausea/Vomiting/Diarrhea Informant: patient and spouse/S.O. Narrative Narrative: 77-year-old female presenting to the emergency room chief complaint of vomiting diarrhea. Patient became ill Wednesday morning with vomiting. She developed diarrhea yesterday. She states that on Wednesday evening she ate chicken fajitas from a [employer] restaurant. Her shared the edition he is not ill. She notes low-grade fever but nothing over 99 degrees. She did not take her blood pressure pills this morning because she has not been eating or drinking. She denies any blood in the urine, stool, or emesis. No mucousy stool. She denies any abdominal pain. [facility] Medical History Anemia Degenerative disc disease, lumbar HLD (hyperlipidemia) Hypertension Loss of appetite Lumbar canal stenosis Nausea and vomiting Osteopenia Rosacea Seborrheic keratosis Home Medications atorvastatin 20 mg tablet 20 mg PO DAILY Check with primary doctor 07/15/21 [History Last Taken Unknown] cholecalciferol (vitamin D3) 25 mcg (1,000 unit) capsule 10 mcg PO DAILY Check with primary doctor 07/15/21 [History Last Taken Unknown] diclofenac sodium 75 mg tablet,delayed release 75 mg PO DAILY Check with primary doctor 07/15/21 [History Last Taken Unknown] lisinopril 30 mg tablet 30 mg PO DAILY Check with primary doctor 07/15/21 [History Last Taken Unknown] acetaminophen 500 mg tablet 1,000 mg (2 x 500 mg) PO Q8 PRN #0 tabs 07/29/21 [Rx Last Taken Unknown] diltiazem HCl 120 mg capsule,extended release 24 hr 120 mg PO QHS #30 caps 07/29/21 [Rx Last Taken Unknown] gabapentin 100 mg capsule 200 mg (2 x 100 mg) PO 3XD #90 caps 07/29/21 [Rx Last Taken Unknown] tizanidine 4 mg tablet 2 mg (1/2 x 4 mg) PO TID PRN PRN Spasms #10 tabs 07/29/21 [Rx Last Taken Unknown] tramadol 50 mg tablet 50 mg PO Q6H PRN PRN Pain Score 4-10 #21 tabs 07/29/21 [Rx Last Taken Unknown] tramadol 50 mg tablet 50 mg PO Q6H PRN pain #28 tabs 08/04/21 [Rx Last Taken Unknown] coenzyme Q10 200 mg capsule 200 mg PO DAILY 10/29/21 [History Last Taken Unknown] docusate sodium 100 mg capsule 100 mg PO DAILY 10/29/21 [History Last Taken Unknown] folic acid 1 mg tablet 1 mg PO DAILY 10/29/21 [History Last Taken Unknown] omeprazole magnesium 20 mg tablet,delayed release (Prilosec OTC) 20 mg PO DAILY 10/29/21 [History Last Taken Unknown] ondansetron HCl 4 mg tablet 4 mg PO Q6H 10/29/21 [History Last Taken Unknown] ondansetron 4 mg disintegrating tablet 4 mg PO Q6H PRN PRN Nausea #15 tabs 12/08/22 [Rx Last Taken Unknown] Allergy/AdvReac Type Severity Reaction Status Date / Time Penicillins AdvReac Other Verified 12/08/22 12:49 Sulfa (Sulfonamide AdvReac Other Verified 12/08/22 12:49 Antibiotics) tetracycline AdvReac Other Verified 12/08/22 12:49 Family History Mother CVA (cerebral vascular accident) Father , at 81YOA....cause unknown No problems noted. Surgical History History of carpal tunnel release of both wrists History of lumbar laminectomy for spinal cord decompression History of Mohs micrographic surgery for skin cancer History of nasal surgery History of tubal ligation Social History household members: spouse housing: house Smoking Status: Never smoker ROS ROS ED Constitutional Constitutional ED: Reports fever(s); Denies chills, sweats or weight loss Eyes Eyes: Denies change in vision or diplopia ENT ENT ED: Denies ear pain, rhinorrhea or sore throat Cardiovascular Cardiovascular: Denies chest pain, orthopnea, palpitations or racing heartbeat Respiratory/Chest Respiratory/Chest: Denies cough, dyspnea or orthopnea Gastrointestinal Gastrointestinal: Reports diarrhea, nausea and vomiting; Denies abdominal pain Genitourinary Genitourinary ED: Denies dysuria, hematuria or urinary frequency Musculoskeletal Musculoskeletal: Denies arthralgias or myalgias Integumentary Denies abscess or rash Neurologic Neurologic: Denies headache(s) or weakness Psychiatric Psychiatric: Denies anxiety, depression, suicidal ideation or suicidal thoughts Endocrine Endocrinology: Denies polydipsia, polyphagia or polyuria Allergic/Immunologic Allergic/Immunologic ED: Denies mouth swelling, tongue swelling or urticaria EXAM Physical Exam Const Vital Signs: 12/08/22 12:49 12/08/22 13:40 Temperature 96.6 F L 97.5 F L Temperature Source Temporal Oral Pulse Rate 118 H 104 H Respiratory Rate 18 18 Blood Pressure 144/82 H 124/72 H Blood Pressure Mean 102 89 Pulse Ox 95 96 Oxygen Delivery Method Room Air Room Air Positive well nourished and well developed General Appearance ED: well developed HEENT Reports normocephalic, head/scalp atraumatic and dry mucous membranes Mouth ED: Yes dry mucous membranes Mouth: dry mucous membranes Eyes PERRL and EOMs intact bilaterally Neck no lymphadenopathy, supple and no JVD Resp normal respiratory effort and clear to auscultation bilaterally Cardio regular rate, regular rhythm and no murmurs Rate: tachycardic GI normal to inspection, nondistended, normoactive bowel sounds and non-tender Palpation: soft Back/Spine no CVA tenderness and normal ROM Extremity normal to inspection General Extremety ED: Negative for edema General Extremity: Negative for edema Neuro oriented x3 and CN's II-XII intact bilaterally Sensorium / Orientation: alert Motor Exam: strength 5/5 throughout Psych mental status grossly normal Mood & Affect: Negative for depressed or tearful Skin no rashes or lesions noted and no wounds MDM MDM MDM Narrative Medical decision making narrative: Basic blood work showed a hemoglobin 9.6 (chronic) and a white count of 11. Sodium potassium normal. BUN of 26 with creatinine 1.38. Anion gap is 7. Liver labs are normal. Patient received 2 L of IV fluids. She is feeling significantly better. She is tolerating p.o. I would encourage her to continue to take oral hydration. I will write for Isai. I think at this time this is most likely a viral illness and should be self-limited. Return if worsening or concerns Lab Data Attestation: I reviewed the patient's lab results. Labs: Laboratory Results - last 24 hr 12/08/22 14:28 WBC 11.0 RBC 3.91 L Hgb 9.6 L Hct 33.3 L MCV 85.2 MCH 24.6 L MCHC 28.8 L RDW Std Deviation 46.2 H RDW Coeff of Jurgen 15.1 H Plt Count 245 MPV 9.2 Immature Gran % (Auto) 0.800 Neut % (Auto) 67.6 Lymph % (Auto) 4.3 L Barber % (Auto) 9.3 Eos % (Auto) 17.5 H Baso % (Auto) 0.5 Absolute Neuts (auto) 7.5 Absolute Lymphs (auto) 0.48 L Nucleated RBC % 0 Differential Comment COMMENT Sodium 137 Potassium 3.7 Chloride 105 Carbon Dioxide 25.0 Anion Gap 7 BUN 26 H Creatinine 1.38 H Est GFR (MDRD) Af Amer 48 L Est GFR (MDRD) Non-Af 39 L BUN/Creatinine Ratio 18.8 Glucose 152 H Calcium 8.9 Total Bilirubin 0.50 AST 28 ALT 18 Alkaline Phosphatase 84 Total Protein 7.3 Albumin 3.2 Globulin 4.1 Albumin/Globulin Ratio 0.8 L Discharge Plan Triage Chief Complaint: Nausea/Vomiting/Diarrhea ED Provider: Gennaro Ramirez Dx/Rx/DC Orders Clinical Impression: Acute dehydration, Gastroenteritis Instructions: ED Dehydration (Adult), ED Diet Vomiting Diarrhea Prescriptions: New ondansetron [ondansetron] 4 mg tablet,disintegrating 4 mg PO Q6H PRN PRN (Reason: Nausea) Qty: 15 0RF No Action docusate sodium 100 mg capsule 100 mg PO DAILY coenzyme Q10 200 mg capsule 200 mg PO DAILY folic acid 1 mg tablet 1 mg PO DAILY ondansetron HCl 4 mg tablet 4 mg PO Q6H omeprazole magnesium [Prilosec OTC] 20 mg tablet,delayed release (DR/EC) 20 mg PO DAILY atorvastatin 20 mg tablet 20 mg PO DAILY Patient Comments: Take 1 tablet by mouth once daily. lisinopril 30 mg tablet 30 mg PO DAILY Patient Comments: TAKE 1 TABLET BY MOUTH DAILY diclofenac sodium 75 mg tablet,delayed release (DR/EC) 75 mg PO DAILY Hold Instructions: Do not start this medication until you clear this with the surgeon. cholecalciferol (vitamin D3) 25 mcg (1,000 unit) capsule 10 mcg PO DAILY Patient Comments: TAKE 1 CAPSULE ONCE DAILY acetaminophen 500 mg Tablet 1,000 mg PO Q8 PRNQty: 0 0RF diltiazem HCl 120 mg Capsule,Extended Release 24hr 120 mg PO QHS Qty: 30 0RF gabapentin 100 mg Capsule 200 mg PO 3XD Qty: 90 0RF Rx Instructions: Take this with breakfast, with supper and 1 hour prior to bedtime. tramadol 50 mg Tablet 50 mg PO Q6H PRN PRN (Reason: Pain Score 4-10) Qty: 21 0RF tizanidine 4 mg tablet 2 mg PO TID PRN PRN (Reason: Spasms) Qty: 10 0RF tramadol 50 mg tablet 50 mg PO Q6H PRN (Reason: pain) Qty: 28 0RF Primary Care Provider: Jenna Weiner Referrals: Jenna Weiner MD [Primary Care Provider] - As Needed Disposition Disposition: Home, Self Care"
[2022-12-08] MEDS: 0.9% Normal Saline (1000mL) 1,000 ML 1000 ML IV ×2 (14:27→16:02)
[2022-12-08] MEDS: Ondansetron 4 MG/2 ML Vial IV (14:28)
[2022-12-08 14:34] LABS: Absolute Lymphocyte Count 0.48 X10^3/uL (0.83-4.51); Absolute Neutrophil Count 7.5 X10^3/uL (2.0-7.7); Basophil# 0.06 X10^3/uL; Basophil% 0.5 % (0-1); Eosinophil# 1.93 X10^3/uL; Eosinophils% 17.5 % (0-5); Hematocrit 33.3 % (37-47); Hemoglobin 9.6 g/dL (12.0-15.0); Lymphocyte # 0.48 X10^3/ul (0.83-4.51); Lymphocyte % 4.3 % (19-41); Mean Corp Hgb Conc 28.8 g/dL (32-36); Mean Corpuscular Hgb 24.6 pg (27.0-32.0); Mean Corpuscular Volume 85.2 fL (81-99); Mean Platelet Vol. 9.2 fl (6.2-12.0); Monocyte# 1.03 X10^3/uL; Monocyte% 9.3 % (0-10); NRBC Flagged by Analyzer 0 % (0-5); Neutrophil # 7.45 X10^3/uL (2.7-7.7); Neutrophil % 67.6 % (47-70); POSITIVE DIFFERENTIAL YES; POSITIVE MORPHOLOGY YES; Platelet Count 245 K/mm3 (150-450); RBC Distribution Width CV 15.1 % (11.6-14.6); RBC Distribution Width SD 46.2 fl (35.1-43.9); Red Blood Count 3.91 M/mm3 (4.2-5.4)
[2022-12-08 14:35] LABS: Differential Indicated SCAN CRITERIA MET
[2022-12-08 14:51] LABS: ALB/GLOB Ratio 0.8 RATIO (0.9-2.4); AST(SGOT) 28 U/L (15-37); Alanine Aminotransfer ALT/SGPT 18 U/L (13-56); Albumin, Serum 3.2 g/dL (3.2-5.0); Alkaline Phosphatase 84 U/L (45-117); Anion Gap 7 (5-15); BUN 26 mg/dL (7-18); BUN/Creat Ratio 18.8 RATIO (10-20); Calcium,Total 8.9 mg/dL (8.5-10.1); Chloride 105 mmol/L (98-107); Creatinine, Serum 1.38 mg/dL (0.55-1.02); EST Glomerular Filtration Rate 39 mL/min (>60); Est Glom Filt Rate - Afr Amer 48 mL/min (>60); Globulin 4.1 g/dL (2.2-4.2); Glucose 152 mg/dL (74-106); Potassium 3.7 mmol/L (3.5-5.1); Protein, Total 7.3 g/dL (6.4-8.2); Sodium Level 137 mmol/L (136-145)
[2022-12-08 16:02] VITALS: BP 121/69; PULSE 91; RESP 16; O2SAT 96
[2022-12-08 17:13] VITALS: BP 121/69; PULSE 82; RESP 16; O2SAT 96
== END 2022-12-08 17:17 | disposition home or self-care (01) ==
PROVIDERS: Emergency Provider Emergency Medicine; PCP Internal Medicine; Visit Provider Emergency Medicine
DX: K52.9 Noninfective gastroenteritis and colitis, unspecified (principal); E86.0 Dehydration; E78.5 Hyperlipidemia, unspecified; I10 Essential (primary) hypertension
CPT/HCPCS: 80053; 85025; 96361; 96374; 99284; J7030; J2405

== ENCOUNTER → 2023-04-05 | Outpatient (CLI) | payer MEDICARE, OTHER, SELFPAY ==
--- NOTE | 2023-04-05 12:17 | US_ITS ---
ACR Level 3 findings have been noted. An addendum which confirms receipt of the report will follow. INDICATION: UTI EXAMINATION: Ultrasound US Kidney(s) complete (eg, kidneys and bladder) TECHNIQUE: Guzmán scale and color doppler images were obtained of the kidneys. COMPARISON: None. FINDINGS: An oblique with RIGHT KIDNEY: 10.1 x 5.2 x 5.5 cm. Mild hydronephrosis. Lobulated cortex. Midpole hypoechoic 2.0 x 1.4 x 2.2 cm mass with internal solid appearing component. No shadowing calculus or perinephric collection is demonstrated. LEFT KIDNEY: 10.8 x 5.2 x 5.5 cm. Moderate hydronephrosis. Lobulated cortex. No shadowing calculus, focal lesion or perinephric collection is demonstrated. URINARY BLADDER: 6.4 x 8.9 x 5.4 cm. Anechoic with demonstration bilateral ureteral jets. Thickening of the bladder wall with suggestion of trabeculation.. US/Kidney and Bladder IMPRESSION: Moderate left and mild right hydronephrosis. Hypoechoic complex 2.2 cm right renal mass. Cannot exclude malignancy. Multiphasic contrast-enhanced renal CT recommended to further characterize. Thickening of the bladder wall with suggestion of trabeculation.. Thickening can be seen with infection or chronic outlet dysfunction, with underlying neoplastic process. Urology follow-up recommended. Electronically Signed: Lamin Saenz MD at 23:15 EST ,
== END | disposition home or self-care (01) ==
LOC: US 12:15
PROVIDERS: PCP Internal Medicine; Referring Provider Urology; Visit Provider Urology
DX: N39.0 Urinary tract infection, site not specified (principal)
CPT/HCPCS: 76770

== ENCOUNTER → 2023-04-07 | Outpatient (CLI) | payer MEDICARE, OTHER, SELFPAY ==
[2023-04-07 12:34] LABS: Anion Gap 4 (5-15); BUN 16 mg/dL (7-18); BUN/Creat Ratio 14.4 RATIO (10-20); Calcium,Total 9.2 mg/dL (8.5-10.1); Chloride 107 mmol/L (98-107); Creatinine, Serum 1.11 mg/dL (0.55-1.02); EST Glomerular Filtration Rate 51 mL/min (>60); Est Glom Filt Rate - Afr Amer 61 mL/min (>60); Glucose 161 mg/dL (74-106); Sodium Level 140 mmol/L (136-145)
== END | disposition home or self-care (01) ==
PROVIDERS: PCP Internal Medicine; Referring Provider Urology; Visit Provider Urology
DX: N13.30 Unspecified hydronephrosis (principal); N28.81 Hypertrophy of kidney
CPT/HCPCS: 36415; 80048

== ENCOUNTER → 2023-04-27 | Outpatient (CLI) | payer MEDICARE, OTHER, SELFPAY ==
--- NOTE | 2023-04-27 08:13 | CT_ITS ---
STUDY: CT ABDOMEN AND PELVIS WITH AND WITHOUT CONTRAST REASON FOR EXAM: Female, 78 years old. Possible right renal mass. RADIATION DOSAGE (If Supplied By Facility): CTDIvol = ( 13.66 ) mGy, DLP = ( 2299.79 ) mGycm TECHNIQUE: Transaxial images were obtained from the dome of the diaphragm to the symphysis pubis without oral contrast. IV 100mL Isovue-370 was administered. Sagittal and coronal images were reconstructed. Individualized dose optimization techniques were used for this CT. COMPARISON: Comparison is made with prior renal sonogram dated April 05, 2023. FINDINGS: The visualized lung bases are unremarkable. The visualized portions of the heart are within normal limits. Scattered calcified hepatic granulomas. Fatty infiltration of the liver. Normal gallbladder and extrahepatic biliary system. There are multiple benign calcified granulomata of the spleen. Normal pancreas. Normal bilateral adrenal glands. Focal cortical scar is seen in the inferior lateral aspect of the right kidney. No mass lesion is seen. Mild degree of left hydronephrosis and left hydroureter down to the left ureterovesical junction. No obstructive uropathy is seen. Normal visualized stomach. Normal small intestine. Normal colon. The appendix is visualized and appears normal. There is diffuse atherosclerotic calcification of the abdominal aorta and its major visceral branches, without a demonstrated aneurysm. Normal inferior vena cava. Normal retroperitoneum. There is diffuse urinary bladder wall thickening. Normal visualized uterus. Normal abdominal wall. There is evidence of a linear hypodensity in the L4 vertebra suggests a possible hemangioma. CT/CT Abd/Pelvis W/WO Contrast IMPRESSION: Focal cortical scarring in the lateral aspect of the right kidney. No mass lesion is seen. Mild degree of left hydronephrosis and left hydroureter down to the left ureterovesical junction. No obstructive uropathy is seen. There is evidence of diffuse bladder wall thickening. Electronically Signed: Joni Painting MD at 14:06 EDT ,
== END | disposition home or self-care (01) ==
PROVIDERS: PCP Internal Medicine; Referring Provider Urology; Visit Provider Urology
DX: N13.30 Unspecified hydronephrosis (principal); N28.89 Other specified disorders of kidney and ureter
CPT/HCPCS: 74178; Q9967

== ENCOUNTER → 2023-06-02 | Outpatient (CLI) | payer MEDICARE, OTHER, SELFPAY ==
[2023-06-02 12:50] LABS: Hematocrit 31.5 % (37-47); Hemoglobin 9.7 g/dL (12.0-15.0); Mean Corp Hgb Conc 30.8 g/dL (32-36); Mean Corpuscular Hgb 26.1 pg (27.0-32.0); Mean Corpuscular Volume 84.7 fL (81-99); Mean Platelet Vol. 9.7 fl (6.2-12.0); Platelet Count 384 K/mm3 (150-450); RBC Distribution Width CV 14.8 % (11.6-14.6); RBC Distribution Width SD 45.6 fl (35.1-43.9); Red Blood Count 3.72 M/mm3 (4.2-5.4); White Blood Count 6.7 K/mm3 (4.4-11.0)
[2023-06-02 13:13] LABS: Anion Gap 5 (5-15); BUN 20 mg/dL (7-18); BUN/Creat Ratio 14.9 RATIO (10-20); Calcium,Total 9.4 mg/dL (8.5-10.1); Chloride 106 mmol/L (98-107); Creatinine, Serum 1.34 mg/dL (0.55-1.02); EST Glomerular Filtration Rate 41 mL/min (>60); Est Glom Filt Rate - Afr Amer 49 mL/min (>60); Glucose 130 mg/dL (74-106); Potassium 4.2 mmol/L (3.5-5.1); Sodium Level 140 mmol/L (136-145)
== END | disposition home or self-care (01) ==
LOC: MTLAB 09:24
PROVIDERS: PCP Internal Medicine; Referring Provider Urology; Visit Provider Urology
DX: N39.0 Urinary tract infection, site not specified (principal); N13.30 Unspecified hydronephrosis
CPT/HCPCS: 36415; 80048; 85027

== ENCOUNTER 2023-06-10 07:36 | Day surgery (SDC) | payer MEDICARE, OTHER, SELFPAY ==
[2023-06-10] VITALS (8 sets, daily range): BP systolic 132–142; BP diastolic 42–78; PULSE 62–78; RESP 16; TEMP 36.4–36.8; O2SAT 93–100; BMI 26.5
[2023-06-10] MEDS: Lactated Ringers 1,000 ML 15 ML IV (08:16)
[2023-06-10 08:25] LABS: International Normalized Ratio 1.1; Partial Thromboplast Time 32.4 Seconds (24.1-36.2); Prothrombin Time (Protime)PT. 14.1 SECONDS (11.7-14.9)
--- NOTE | 2023-06-10 09:04 | PCM.OPRPT ---
Report of Operation Date of Procedure: 06/10/23 Pre-Operative Diagnosis: Urinary tract infection, left hydronephrosis Post-Operative Diagnosis: Same, trabeculation Surgery/Procedure Performed:: Cystoscopy, left retrograde pyelogram, left ureteroscopy Description of Surgical Findings:: There is detrusor hypertrophy with trabeculation and the start of diverticula. She is likely having reflux of urine from a dysfunctional bladder that is not emptying well. Will proceed with urodynamics as outpatient. Surgeon: Esther Lu Type of Anesthesia: General Specimen's removed: None Description of Procedure: The patient is a 78-year-old female with urinary tract infections. On evaluation with imaging she was noted to have a left hydronephrosis on ultrasound, with dilation all the way to the bladder found on CT scan. She now presents for cystoscopic evaluation with possible biopsy, retrograde pyelogram with ureteroscopy and possible left ureteral stent insertion. Informed consent was obtained. The patient was taken to the operating room and placed on the operating room table. Anesthesia monitored the head, neck, airway, IV access and vital signs throughout the case. Once anesthesia was appropriately administered, the patient was placed into dorsolithotomy position and was prepped and draped in usual sterile fashion. The cystoscope was inserted through the urethra under direct visualization. The entire bladder mucosa was visualized. There is no finding of mass, erythema, ulceration or foreign body. There is trabeculation with the beginning of diverticula. The left ureteral orifice is wide open. The right ureteral orifice appears more normal. Both are in the correct anatomic position. The left ureteral orifice was cannulated with an 8 Greek cone-tip catheter and contrast was injected in retrograde fashion revealing the entire length of the ureter to be dilated with difficulty getting contrast up into the renal pelvis. At this time, a 0.035 Glidewire was passed through the orifice into the renal pelvis as seen on fluoroscopy. The flexible ureteroscope easily passed over the wire and was advanced into the renal pelvis without difficulty. The calyces were directly visualized finding no evidence of stone, mass, erythema or abnormality. The entire length of the ureter was visualized and the only finding was dilation. At this time the patient's bladder was emptied and she was awakened and taken to the recovery room in good condition. There were no complications during this procedure. Grafts/Implants Used: None Complications None Admit VTE Documentation VTE Present on Admission: Yes VTE Mechan Device Prophylaxis: SCD's VTE Pharm Prophylaxis ordered?: No Reason prophylaxis not ordered:: Treatment Not Indicated
[2023-06-10] MEDS: Ciprofloxacin 400 MG/200 ML BAG 200 MG IV (09:14)
--- NOTE | 2023-06-10 09:45 | DCINST_ITS ---
Discharge Instructions Diet Discharge Diet: No restrictions Activity Discharge Activity: Return to Normal Activity Dressing / Incision Call your doctor if you observe: Fever of 101 or Higher, Inability to urinate and Inability to have a bowel movement Follow Up Care Please Follow Up With: Esther Lu MD When: in 2-3 weeks. Please complete the cipro Rx. thank you. Test Results: Test results from this visit will be discussed in further detail at your follow- up appointment, if applicable. Discharge Plan Admission Attending Provider: Esther Lu Primary Care Provider: Jenna Weiner Discharge Orders/Prescriptions Prescriptions: Continued docusate sodium 100 mg capsule 100 mg PO DAILY folic acid 1 mg tablet 1 mg PO DAILY atorvastatin 20 mg tablet 20 mg PO QHS Patient Comments: Take 1 tablet by mouth once daily. lisinopril 30 mg tablet 30 mg PO DAILY Patient Comments: TAKE 1 TABLET BY MOUTH DAILY diltiazem HCl 120 mg Capsule,Extended Release 24hr 120 mg PO QHS Qty: 30 0RF vitamin F80-cyqdm acid 500-400 mcg tablet 1 tab PO DAILY Rx Instructions: administer with a meal acetaminophen 500 mg Tablet 1,000 mg PO Q8H PRN PRN (Reason: pain) cholecalciferol (vitamin D3) [Vitamin D3] 25 mcg (1,000 unit) tablet,chewable 25 mcg PO DAILY Patient Comments: check with primary doctor for dose Referrals / Follow Up: Jenna Weiner MD [Primary Care Provider] - Disposition Disposition (needs filled in before D/C Order can be placed): Home, Self Care
--- NOTE | 2023-06-10 10:09 | EKG12_ITS ---
Test Reason : preop Blood Pressure : / mmHG Vent. Rate : 073 BPM Atrial Rate : 073 BPM P-R Int : 160 ms QRS Dur : 076 ms QT Int : 418 ms P-R-T Axes : 075 -35 039 degrees QTc Int : 460 ms Normal sinus rhythm Left axis deviation Cannot rule out Anterior infarct , age undetermined Abnormal ECG When compared with ECG of 12-SEP-2008 02:31, Minimal criteria for Anterior infarct are now Present Confirmed by DACIA TEAGUE, CHAU ([id number]), purchase request editor MIGUEL ANGEL AUSTIN ([id number]) on 06/14/2023 7:45:59 AM Referred By: Jenna Weiner Confirmed By:CHAU PEDERSON MD
== END 2023-06-10 11:02 | disposition home or self-care (01) ==
LOC: SDC 07:36 → AC 07:37
PROVIDERS: Anesthesiology; PCP Internal Medicine; Referring Provider Internal Medicine; Visit Provider Urology
PROC: 0TJ98ZZ Inspection of Ureter, Via Natural or Artificial Opening Endoscopic (ICD-10-PCS; CPT 52352; principal; 2023-06-10 09:05)
DX: N13.6 Pyonephrosis (principal); I10 Essential (primary) hypertension; R33.9 Retention of urine, unspecified; N39.41 Urge incontinence; E78.5 Hyperlipidemia, unspecified; N32.89 Other specified disorders of bladder; N32.3 Diverticulum of bladder; Z79.899 Other long term (current) drug therapy
CPT/HCPCS: 52005; 00910; 76000; 85610; 85730; 93005; J7120; J0744; J2405

== ENCOUNTER → 2024-05-11 | Outpatient (CLI) | payer MEDICARE, OTHER, SELFPAY ==
--- NOTE | 2024-05-11 13:43 | US_ITS ---
PROCEDURE: KIDNEY AND BLADDER 05/11/2024 REASON FOR EXAM: UTI TECHNIQUE: Bilateral renal ultrasound. COMPARISON: None FINDINGS: RIGHT Kidney Size: 9.6 cm x 4.7 cm x 4.4 cm Volume: 103 mL Cortical Thickness (if discernible): 1.3 cm (>6mm is normal) There is a 1.8 cm 1.5 cm x 1.3 cm complex lesion in the upper pole of the right kidney. Correlation with CT scan is recommended. LEFT Kidney Size: 9.5 cm x 4 cm x 4.2 cm Volume: 82.5 mL Cortical Thickness (if discernible): 1.3 cm (>6mm is normal) Bladder: 248 mL. US/Kidney and Bladder IMPRESSION: 1.8 cm x 1.5 cm 1.3 cm complex mass in the upper pole of the right kidney. Cor relation with CT scan is recommended. No evidence of hydronephrosis. Reading Location: [place] [id number]
== END | disposition home or self-care (01) ==
PROVIDERS: PCP Internal Medicine; Referring Provider Urology; Visit Provider Urology
DX: N39.0 Urinary tract infection, site not specified (principal)
CPT/HCPCS: 76770